=== PATIENT | female | born 1940 | race Caucasian/White ===

== ENCOUNTER 2022-10-03 18:04 | Inpatient (IN) | payer MEDICARE, SELFPAY ==
[2022-10-03] VITALS (25 sets, daily range): BP systolic 125–148; BP diastolic 74–90; PULSE 66–92; RESP 9–21; O2SAT 97–100
--- NOTE | ~2022-10-03 | CT_ITS ---
EXAMINATION: CT brain wo con INDICATION: Weakness, headache COMPARISON: 07/05/2015 TECHNIQUE: Standard unenhanced head CT. The dose-length product (DLP) was 605.33 mGy-cm. The mA was a djusted according to patient size. Iterative reconstruction technique was employed. FINDINGS: There is no acute intraparenchymal hemorrhage. No evidence of mass lesion. No evidence of a cute infarction. There is moderate periventricular and subcortical hypodensity probably related to sm all vessel ischemic disease. There is mild prominence of the sulci and ventricles related to cerebral atrophy. Intracranial calcified cerebral atherosclerosis is noted. There are no extra-axial collecti ons. There is no mass effect or midline shift. Changes in the globes are likely from ocular lens surg silvia. The visualized sinuses and mastoid air cells are well aerated. IMPRESSION: 1. No acute intracranial abnormality. 2. Age related findings. Reviewed, dictated and finalized at location F. R FOAM RUBBER
--- NOTE | ~2022-10-03 | XR_ITS ---
EXAMINATION: XR chest 1V portable INDICATION: Weakness TECHNIQUE: Portable AP chest at 2158 hours COMPARISON: 12/14/2018 FINDINGS: The lungs are free of acute opacities. No pleural effusion or pneumothorax. Cardiomegaly is noted. There are surgical clips in the left neck. IMPRESSION: 1. Cardiomegaly. Reviewed, dictated and finalized at location F. T MILL SUPERVISOR IMPRESSION: 1. Cardiomegaly.
--- NOTE | 2022-10-03 18:16 | ECG_ITS ---
Measurements Intervals [place] Rate: 68 P: 38 W[place]: 215 QRS: -44 QRSD: 139 T: 98 QT: 471 QTc: 503 Interpretive Statements SINUS RHYTHM WITH FIRST DEGREE AV BLOCK ATRIAL PREMATURE COMPLEX LEFT AXIS DEVIATION LEFT BUNDLE BRANCH BLOCK BASELINE ARTIFACT- II, III ABNORMAL ECG COMPARED TO ECG 12/14/2018 17:23:34 NO SIGNIFICANT CHANGES Electronically Signed On 10-03-2022 19:20:38 [employer]ING HOUSE SUPERVISOR by Bernard Casanova D.O.
[2022-10-03 18:34] LABS: Basophils Percent Auto 0.6 % (0.2-1.2); Hematocrit 36.3 % (37.0-47.0); Immature Granulocyte Absolute 0.03 K/mm3 (0.00-0.031); Immature Granulocyte Percent A 0.4 % (0-0.5); Lymphocytes Absolute Auto 0.66 K/mm3 (0.9-3.2); Lymphocytes Percent Auto 9.1 % (18.3-44.2); Mean Corpuscular HGB Conc 33.1 g/dl (32-36); Mean Corpuscular Hemoglobin 31.5 pg (26-34); Mean Corpuscular Volume 95.3 fl (80-100); Monocytes Absolute Auto 0.7 K/mm3 (0.1-0.6); Monocytes Percent Auto 9.5 % (2.6-8.5); Neutrophils Absolute Auto 5.8 K/mm3 (1.3-6.7); Neutrophils Percent Auto 80.4 % (45.5-73.1); Platelet Count Result 181 k/mm3 (150-375); Red Blood Count 3.81 M/mm3 (4.2-5.4); Red Cell Distribution Width 12.7 % (11.5-14.5); White Blood Count 7.3 K/mm3 (4.5-10.0)
[2022-10-03 18:44] LABS: Alanine Aminotransferase 15 U/L (6-35); Alkaline Phosphatase 87 U/L (38-126); Anion Gap 4 mmol/L (8-16); Aspartate Amino Transferase 28 U/L (14-36); Bilirubin,Total 1.2 mg/dL (0.2-1.3); Blood Urea Nitrogen 18 mg/dL (7-17); Calcium 8.6 mg/dL (8.4-10.2); Carbon Dioxide 31 mmol/L (22-30); Chloride 97 mmol/L (98-107); Estimated CRCL calculation 76 ml/min; Estimated Glomerular Filt Rate > 60; Glucose 105 mg/dL (65-110); Potassium 3.5 mmol/L (3.4-5.0); Sodium 132 mmol/L (137-145)
[2022-10-03 20:15] LABS: Appearance Urine Clear (Clear); Bacteria Urine None Seen /hpf; Bilirubin Urine Negative (Negative); Color Urine Yellow (Yellow); Glucose Urine UA Negative (Negative); Ketones Urine Negative (Negative); Leukocyte Esterase Ur Negative LEU/UL (Negative); Need Manual Microscopic Reviewed; Nitrate Urine Negative (Negative); Non Pathogenic Casts 0-2; Protein Urine Trace mg/dL (Negative); Specific Grav Ur 1.012 (1.001-1.035); Squamous Epithelial Cell Urine None seen /hpf (Few); WBC Urine 0-5 /hpf; pH Urine 7.5 (5.0-9.0)
[2022-10-03 20:17] LABS: Add Urine Microscopic? YES
[2022-10-03 21:52] LABS: Lactic Acid Reflex 0.9 mmol/L (0.7-2.0)
[2022-10-03 21:54] LABS: Ethanol < 10 mg/dL (<10)
[2022-10-03 21:59] LABS: Magnesium 1.8 mg/dL (1.6-2.3)
[2022-10-03 22:04] LABS: Amphetamine Screen Urine Negative (Negative); Barbiturate Screen Urine Negative (Negative); Benzodiazepines Screen Urine Negative (Negative); Cannabinoid Screen Urine Negative (Negative); Cocaine Screen Urine Negative (Negative); Methadone Screen Urine Negative (Negative); Opiate Screen Urine Negative (Negative); Phencyclidine Screen Urine Negative (Negative)
[2022-10-03 22:12] LABS: Troponin I < 0.012 ng/mL (0.000-0.034)
[2022-10-03 22:16] LABS: Procalcitonin 0.1 ng/mL
[2022-10-03 22:25] LABS: Influenza A QL RT-PCR Negative (Negative); Influenza B QL RT-PCR Negative (Negative); SARS-CoV-2 RNA PCR Negative
--- NOTE | 2022-10-04 00:03 | ED.GENADULT ---
HPI - General Adult General Chief complaint: Weakness Stated complaint: Weakness Time Seen by Provider: 10/03/22 21:08 History of Present Illness HPI narrative: Patient 82-year-old female who presents emerged department with chief complaint of generalized weakness. Patient lives at home with her [id number] mother patient has history of Parkinson's and is normally on medications for Parkinson's but apparently has not been taking it for the last several weeks due to it making her feel weaker than normal. Patient reports that she is unsteady whenever she walks and the family is concerned as she has not been her normal self lately. Related Data Allergies Allergy/AdvReac Type Severity Reaction Status Date / Time mesalamine Allergy Mild Verified 12/14/18 15:53 sulfasalazine Allergy Mild Verified 12/14/18 15:53 codeine Allergy Unknown Verified 12/14/18 15:53 Review of Systems Review of Systems: A 10 system review of systems was completed on the patient and is negative except for what is stated in the HPI. Nursing and ancillary documentation was reviewed. Exam Narrative: GENERAL: Well-appearing, well-nourished, and in no acute distress. HEAD: Normocephalic, atraumatic. EYES: PERRLA and EOMI. ENT: Nares clear, no rhinorrhea or epistaxis. Mucous membranes moist. NECK: Supple. CHEST: Clear to auscultation. No respiratory distress. HEART: Regular rate and rhythm. No murmur heard. Normal peripheral pulses. ABDOMEN: Soft, nontender, nondistended, normal active bowel sounds. EXTREMITIES: Normal range of motion. No edema. SKIN: Warm, dry, no rash. NEURO: No focal deficits. Alert and oriented x3. Patient is unable to ambulate using a walker at this time due to her Parkinson tremor PSYCH: Normal mood and affect. Course Course Emergency Course: Differential diagnosis includes infection UTI, pneumonia, COVID electrolyte abnormality [facility] CT head shows no acute abnormality, chest x-ray shows no focal infiltrate Laboratory studies were obtained which showed negative flu negative for COVID electrolytes were within normal limits urinalysis showed no evidence of UTI [place] is negative troponin is negative Patient was ambulated in the emergency department the patient was unable to ambulate even using a walker due to being unsteady. At this time is felt the safest option is to admit the patient for observation the case was discussed with the hospitalist and the patient will be admitted to the hospitalist service. Vital Signs Vital signs: Vital Signs Pulse Rate 69 10/03/22 18:06 Respiratory Rate 16 10/03/22 18:06 Blood Pressure 133/83 10/03/22 18:06 Pulse Oximetry 98 10/03/22 18:06 Oxygen Delivery Room Air 10/03/22 18:06 Pulse Rate 72 10/03/22 22:30 Respiratory Rate 15 10/03/22 22:30 Blood Pressure 126/90 10/03/22 22:30 Pulse Oximetry 97 10/03/22 22:30 Oxygen Delivery Room Air 10/03/22 18:06 Medical Decision Making Vital Signs Vital Signs: Vital Signs Pulse Rate 69 10/03/22 18:06 Respiratory Rate 16 10/03/22 18:06 Blood Pressure 133/83 10/03/22 18:06 Pulse Oximetry 98 10/03/22 18:06 Oxygen Delivery Room Air 10/03/22 18:06 Pulse Rate 72 10/03/22 22:30 Respiratory Rate 15 10/03/22 22:30 Blood Pressure 126/90 10/03/22 22:30 Pulse Oximetry 97 10/03/22 22:30 Oxygen Delivery Room Air 10/03/22 18:06 Lab Data 10/03/22 18:28 10/03/22 18:28 Labs: Lab Results 10/03/22 10/03/22 10/03/22 Range/Units 18:27 18:28 18:28 WBC 7.3 (4.5-10.0) K/mm3 RBC 3.81 L (4.2-5.4) M/mm3 Hgb 12.0 (12.0-15.0) g/dL Hct 36.3 L (37.0-47.0) % MCV 95.3 (80-100) fl MCH 31.5 (26-34) pg MCHC 33.1 (32-36) g/dl RDW 12.7 (11.5-14.5) % Plt Count 181 (150-375) k/mm3 MPV 10.0 (7.4-10.4) fl Immature Gran % (Auto) 0.4 (0-0.5) % Neut % (Auto) 80.4 H (45.5-73.1) % Lymph % (Auto) 9.1 L (18.3
--- NOTE | 2022-10-04 01:24 | PM.IMHP ---
H&P: HPI History of Present Illness Date/Time: 10/04/22 01:24 Chief Complaint: 82 years old female with past medical history of parkinsonism presented to the ER with worsening weakness patient was not taking her medication at home patient unable to use a walker patient unable to care for herself patient most likely will need placement workup at the ER include CBC CMP UA was negative for acute finding probably patient has decreased oral intake and dehydration complicated by not taking antiparkinson medication patient will be admitted to the hospital for placement Review of Systems Review of Systems: Twelve system review was done negative except above Meds Home Medications and Allergies Allergies Allergy/AdvReac Type Severity Reaction Status Date / Time mesalamine Allergy Mild Verified 12/14/18 15:53 sulfasalazine Allergy Mild Verified 12/14/18 15:53 codeine Allergy Unknown Verified 12/14/18 15:53 Vital Signs Vital Signs - 24 hr 10/03/22 18:06 10/03/22 19:20 10/03/22 18:16 Pulse Rate 69 70 68 Respiratory Rate 16 21 H Blood Pressure 133/83 Pulse Oximetry 98 97 Oxygen Delivery Room Air 10/03/22 18:24 10/03/22 18:30 10/03/22 18:45 Pulse Rate 74 66 66 Respiratory Rate 11 L 10 L 11 L Blood Pressure 131/84 Pulse Oximetry 100 100 99 Oxygen Delivery 10/03/22 19:00 10/03/22 19:01 10/03/22 19:15 Pulse Rate 67 66 69 Respiratory Rate 13 9 L 11 L Blood Pressure 125/74 Pulse Oximetry 98 99 100 Oxygen Delivery 10/03/22 19:31 10/03/22 19:45 10/03/22 20:00 Pulse Rate 68 72 79 Respiratory Rate 11 L 12 11 L Blood Pressure Pulse Oximetry Oxygen Delivery 10/03/22 20:01 10/03/22 20:15 10/03/22 20:30 Pulse Rate 72 70 81 Respiratory Rate 10 L 11 L 14 Blood Pressure 148/77 H Pulse Oximetry Oxygen Delivery 10/03/22 20:45 10/03/22 21:00 10/03/22 21:01 Pulse Rate 72 83 92 Respiratory Rate 16 13 15 Blood Pressure Pulse Oximetry 98 99 Oxygen Delivery 10/03/22 21:15 10/03/22 21:30 10/03/22 21:45 Pulse Rate 74 78 71 Respiratory Rate 14 17 15 Blood Pressure Pulse Oximetry Oxygen Delivery 10/03/22 22:00 10/03/22 22:01 10/03/22 22:15 Pulse Rate 72 74 74 Respiratory Rate 17 16 19 Blood Pressure Pulse Oximetry Oxygen Delivery 10/03/22 22:30 Pulse Rate 72 Respiratory Rate 15 Blood Pressure 126/90 Pulse Oximetry 97 Oxygen Delivery Exam Narrative: GENERAL: Well appearing, well-nourished, non-toxic, in no acute distress. HEAD: Normocephalic, atraumatic. NECK: Supple. No adenopathy, no masses. RESPIRATORY: Airway patent, respirations nonlabored. Clear to auscultation bilaterally, no rales, rhonchi, wheezing. CARDIOVASCULAR: Regular rate and rhythm without murmurs, rubs, or gallops. Peripheral pulses 2+ and equal bilaterally. ABDOMINAL: Soft, nontender, nondistended, no hepatosplenomegaly. Normoactive BS. MUSCULOSKELETAL: Moves all extremities. Strength/ROM intact without gross deformities or TTP. No edema. No calf tenderness. No chest wall tenderness palpation. SKIN: Warm, dry, normal color. No rashes. NEURO: A&O X3. Speech clear. Cranial nerves II-XII grossly intact. Steady gait. No ataxic movements. PSYCHIATRIC: Appropriate mood and affect. Normal interaction. H&P: Results Labs Labs: Short CBC 10/03/22 Range/Units 18:28 WBC 7.3 (4.5-10.0) K/mm3 Hgb 12.0 (12.0-15.0) g/dL Hct 36.3 L (37.0-47.0) % Plt Count 181 (150-375) k/mm3 [facility] 10/03/22 18:28 Sodium 132 L Potassium 3.5 Chloride 97 L Carbon Dioxide 31 H BUN 18 H Creatinine 0.80 Glucose 105 Calcium 8.6 Cardiac Enzymes 10/03/22 Range/Units 21:37 Troponin I < 0.012 (0.000-0.034) ng/mL Liver Function 10/03/22 Range/Units 18:28 Total Bilirubin 1.2 (0.2-1.3) mg/dL AST 28 (14-36) U/L ALT 15 (6-35) U/L Alkaline Phosphatase 87 (38-126) U/L Albumin 4.0 (3.5-5.1) g/dL Urine 10/03/22 Range/Units
--- NOTE | 2022-10-04 03:10 | ADMGEN ---
This patient, Faiza Pizarro, was admitted to Medical Room 344-01. Patient/family oriented to hospital policies and general routines including ID bracelet, bed and alarms, visiting hours, pain management, procedures, bathroom and other care routines, personal items, smoking policy, room service/diet, and visiting hours. Information on how to activate the Rapid Response Team has been discussed. Patient/Family are encouraged to report perceived risks to care and to ask questions if they do not understand what they are told or what they should do.
[2022-10-04] MEDS: ACETAMINOPHEN 325 MG TABLET 650 MG PO (03:26)
[2022-10-04] MEDS: SODIUM CHLORIDE 0.9% IV 1,000 ML 100 ML IV CONT ×2 (03:36→16:52)
[2022-10-04 03:39] VITALS: BMI 26.6
[2022-10-04 04:00] VITALS: BP 154/76; PULSE 64; RESP 20; TEMP 36.6; O2SAT 100
[2022-10-04 04:16] LABS: Creatinine Urine 74.6 mg/dL
[2022-10-04 05:26] LABS: Basophils Percent Auto 0.8 % (0.2-1.2); Eosinophils Percent Auto 0.2 % (0-4.4); Hematocrit 33.5 % (37.0-47.0); Immature Granulocyte Absolute 0.02 K/mm3 (0.00-0.031); Immature Granulocyte Percent A 0.4 % (0-0.5); Lymphocytes Absolute Auto 0.87 K/mm3 (0.9-3.2); Lymphocytes Percent Auto 16.6 % (18.3-44.2); Mean Corpuscular HGB Conc 32.8 g/dl (32-36); Mean Corpuscular Hemoglobin 31.4 pg (26-34); Mean Corpuscular Volume 95.7 fl (80-100); Mean Platelet Volume 9.8 fl (7.4-10.4); Monocytes Absolute Auto 0.6 K/mm3 (0.1-0.6); Monocytes Percent Auto 12.2 % (2.6-8.5); Neutrophils Absolute Auto 3.7 K/mm3 (1.3-6.7); Neutrophils Percent Auto 69.8 % (45.5-73.1); Platelet Count Result 170 k/mm3 (150-375); Red Cell Distribution Width 12.7 % (11.5-14.5); White Blood Count 5.2 K/mm3 (4.5-10.0)
[2022-10-04 05:41] LABS: Alanine Aminotransferase 15 U/L (6-35); Albumin Level 3.5 g/dL (3.5-5.1); Alkaline Phosphatase 70 U/L (38-126); Anion Gap 3 mmol/L (8-16); Aspartate Amino Transferase 35 U/L (14-36); Bilirubin,Total 1.2 mg/dL (0.2-1.3); Blood Urea Nitrogen 15 mg/dL (7-17); Calcium 8.3 mg/dL (8.4-10.2); Carbon Dioxide 28 mmol/L (22-30); Chloride 100 mmol/L (98-107); Estimated CRCL calculation 49 ml/min; Estimated Glomerular Filt Rate > 60; Glucose 100 mg/dL (65-110); Potassium 3.2 mmol/L (3.4-5.0); Sodium 131 mmol/L (137-145)
--- NOTE | 2022-10-04 08:26 | PM.IMPN ---
Progress Note: A&P Assessment and Plan (1) Episode of generalized weakness: Code(s): R53.1 - Weakness Status: Acute Assessment and Plan: PT OT evaluation Most likely multifactorial secondary to decreased oral intake and dehydration Encourage oral hydration Give IV fluid May need placement (2) Dehydration: Code(s): E86.0 - Dehydration Status: Acute Assessment and Plan: IV fluid (3) Parkinson disease: Code(s): G20 - Parkinson's disease Status: Acute Assessment and Plan: Resume home medication (4) Acute hyponatremia: Code(s): E87.1 - Hypo-osmolality and hyponatremia Status: Acute Assessment and Plan: Most likely related to dehydration give IV fluid Subjective Date/time seen: 10/04/22 08:26 Exam Narrative: GENERAL: Well appearing, well-nourished, non-toxic, in no acute distress. HEAD: Normocephalic, atraumatic. NECK: Supple. No adenopathy, no masses. RESPIRATORY: Airway patent, respirations nonlabored. Clear to auscultation bilaterally, no rales, rhonchi, wheezing. CARDIOVASCULAR: Regular rate and rhythm without murmurs, rubs, or gallops. Peripheral pulses 2+ and equal bilaterally. ABDOMINAL: Soft, nontender, nondistended, no hepatosplenomegaly. Normoactive BS. MUSCULOSKELETAL: Moves all extremities. Strength/ROM intact without gross deformities or TTP. No edema. No calf tenderness. No chest wall tenderness palpation. SKIN: Warm, dry, normal color. No rashes. NEURO: A&O X3. Speech clear. Cranial nerves II-XII grossly intact. Steady gait. No ataxic movements. PSYCHIATRIC: Appropriate mood and affect. Normal interaction. Objective Data Vital Signs Vital Signs: Vital Signs - 24 hr 10/03/22 18:06 10/03/22 19:20 10/03/22 18:16 Temperature Pulse Rate 69 70 68 Respiratory Rate 16 21 H Blood Pressure 133/83 Pulse Oximetry 98 97 Oxygen Delivery Room Air 10/03/22 18:24 10/03/22 18:30 10/03/22 18:45 Temperature Pulse Rate 74 66 66 Respiratory Rate 11 L 10 L 11 L Blood Pressure 131/84 Pulse Oximetry 100 100 99 Oxygen Delivery 10/03/22 19:00 10/03/22 19:01 10/03/22 19:15 Temperature Pulse Rate 67 66 69 Respiratory Rate 13 9 L 11 L Blood Pressure 125/74 Pulse Oximetry 98 99 100 Oxygen Delivery 10/03/22 19:31 10/03/22 19:45 10/03/22 20:00 Temperature Pulse Rate 68 72 79 Respiratory Rate 11 L 12 11 L Blood Pressure Pulse Oximetry Oxygen Delivery 10/03/22 20:01 10/03/22 20:15 10/03/22 20:30 Temperature Pulse Rate 72 70 81 Respiratory Rate 10 L 11 L 14 Blood Pressure 148/77 H Pulse Oximetry Oxygen Delivery 10/03/22 20:45 10/03/22 21:00 10/03/22 21:01 Temperature Pulse Rate 72 83 92 Respiratory Rate 16 13 15 Blood Pressure Pulse Oximetry 98 99 Oxygen Delivery 10/03/22 21:15 10/03/22 21:30 10/03/22 21:45 Temperature Pulse Rate 74 78 71 Respiratory Rate 14 17 15 Blood Pressure Pulse Oximetry Oxygen Delivery 10/03/22 22:00 10/03/22 22:01 10/03/22 22:15 Temperature Pulse Rate 72 74 74 Respiratory Rate 17 16 19 Blood Pressure Pulse Oximetry Oxygen Delivery 10/03/22 22:30 10/04/22 04:00 Temperature 98 F Pulse Rate 72 64 Respiratory Rate 15 20 Blood Pressure 126/90 154/76 H Pulse Oximetry 97 100 Oxygen Delivery Intake/Output Intake/Output: Intake & Output 10/01/22 10/02/22 10/03/22 10/04/22 23:59 23:59 23:59 23:59 Output Total 300 Balance -300 Meds/Results Medications: Active Medications Generic Name Dose Route Start Last Admin Trade Name Robq PRN Reason Stop Dose Admin Acetaminophen 650 mg 10/04/22 01:22 10/04/22 03:26 Acetaminophen 325 Mg Tablet PO 650 mg Q6H PRN Administration Mild Pain (1-3) Enoxaparin Sodium 40 mg 10/04/22 09:00 Enoxaparin 40 Mg/0.4 Ml Syringe SUB-Q DAILY NOHEMY Famotidine 20 mg 10/04/22 09:00 Famotidine 20 Mg Tablet PO
[2022-10-04] MEDS: FAMOTIDINE 20 MG TABLET PO ×2 (08:46→21:41)
[2022-10-04] MEDS: ENOXAPARIN 40 MG/0.4 ML SYRINGE SUB-Q (08:46)
--- NOTE | 2022-10-04 09:11 | WPDNEURCNPN ---
Assessment and Plan Assessment and plan (1) Parkinson disease: Code(s): G20 - Parkinson's disease Status: Acute (2) Episode of generalized weakness: Code(s): R53.1 - Weakness Status: Acute Plan Faiza Pizarro is a 82 year old female with a history of Parkinson's disease who presented to the emergency room due to concerns for generalized weakness. She has not been compliant with her due to concerns for excessive drowsiness and fatigue. Patient is on SSRI, so would not add MAO-B inhibitor such as rasagiline. Given her age, I would also avoid dopamine agonists as well. She does have a prominent kinetic tremor without any significant bradykinesia or rigidity so I am also considering essential tremor component. I discussed the option of restarting Sinemet at a lower dose with slower titration and seeing how she tolerates as it would be the best medication to start with especially with her age. I also discussed the option of trying Primidone for possible essential tremor component. Patient did not seem to be interested in either option at the time of our discussion. She is concerned about the sedating effects of the medications. It is unknown how much Sinemet she was actually taking and whether there were any other confounding factors. We discussed that she can think about it and let us know if she is willing to start a medication. - If patient is agreeable, we can start Sinemet 25-100mg week 1: take 1/2 tablet at bedtime week 2: take 1/2 tablet mid-day and 1/2 tablet at bedtime week 3: take 1/2 tablet in the morning, 1/2 tablet mid-day, and 1/2 tablet at bedtime week 4: take 1/2 tablet in the morning, 1/2 tablet mid-day, and 1 tablet at bedtime week 5: take 1/2 tablet in the morning, 1 tablet mid-day, and 1 tablet at bedtime week 6: take 1 tablet in the morning, 1 tablet mid-day, and 1 tablet at bedtime Take each dose on an empty stomach with 2 crackers or 30 minutes before a meal Consult date: 10/04/22 Reason for consult: Parkinson's Disease HPI: Faiza Pizarro is a 82 year old female with a history of Parkinson's disease who presented to the emergency room due to concerns for generalized weakness. Patient lives with her elderly mother. She recently stopped taking her Parkinson's medication due to it making her tired. Family feels that she has not been acting like herself. In the ED, her labs were unrevealing - UA negative. CT head showed no evidence of acute process. Blood pressure has been stable as well. No PD medications have been ordered during this admission. She does take Citalopram 40mg daily. Patient was previously taking Sinemet but does not remember how much she was taking. She stopped taking it a few years ago. She reports she did not see a Neurologist and that her primary doctor had prescribed it to her. She has tremor and balance issues but does walk independently. She does not remember when she was diagnosed with Parkinson's but says it has been years. Review of Systems Constitutional: Constitutional: Reports weakness Eyes: Eyes: Reports no additional eye complaints ENT: Reports system reviewed and no additional complaints, except as documented Cardiovascular: Cardiovascular: Reports no additional cardiovascular complaints Respiratory: Respiratory: Reports no additional respiratory complaints Gastrointestinal: Gastrointestinal: Reports no additional gastrointestinal complaints Genitourinary: Genitourinary: Reports no additional female genitourinary complaints Musculoskeletal: Musculoskeletal: Reports no additional musculoskeletal complaints Integumentary/Breasts: Skin/Breast: Reports system reviewed and no additional complaints, except as docu Neurologic: Reports as per [facility] Social History Social History Smoking status: Never smoker Alcohol intake: never Substance use: never Lack of Transportation: YES Lack of Food: Never True Cu
--- NOTE | 2022-10-04 09:22 | PM.IMPN ---
Progress Note: A&P Assessment and Plan (1) Episode of generalized weakness: Code(s): R53.1 - Weakness Status: Acute Assessment and Plan: PT OT evaluation Most likely multifactorial secondary to decreased oral intake and dehydration Encourage oral hydration Give IV fluid May need placement (2) Dehydration: Code(s): E86.0 - Dehydration Status: Acute Assessment and Plan: (3) Parkinson disease: Code(s): G20 - Parkinson's disease Status: Acute Assessment and Plan: uncontrolled Parkinson disease, rest tremor, patient has been off medication for long time, unable to tolerate medication Resume home medication, consult neurologist for evaluation and treatment (4) Acute hyponatremia: Code(s): E87.1 - Hypo-osmolality and hyponatremia Status: Acute Assessment and Plan: Most likely related to dehydration give IV fluid (5) Hyponatremia: Code(s): E87.1 - Hypo-osmolality and hyponatremia Status: Acute Assessment and Plan: continue normal saline 100 mL/hour (6) Hypokalemia: Code(s): E87.6 - Hypokalemia Status: Acute Assessment and Plan: start potassium chloride 20 mEq. b.i.d. P.o. Subjective Date/time seen: 10/04/22 09:22 saw examined patient. Patient is awake, not oriented x3, has uncontrolled tremors, patient is of Parkinson disease medication for long time Exam Narrative: GENERAL: Well appearing, well-nourished, non-toxic, in no acute distress. HEAD: Normocephalic, atraumatic. dry mucous members NECK: Supple. No adenopathy, no masses. RESPIRATORY: Airway patent, respirations nonlabored. Clear to auscultation bilaterally, no rales, rhonchi, wheezing. CARDIOVASCULAR: Regular rate and rhythm without murmurs, rubs, or gallops. Peripheral pulses 2+ and equal bilaterally. ABDOMINAL: Soft, nontender, nondistended, no hepatosplenomegaly. Normoactive BS. MUSCULOSKELETAL: Moves all extremities. general weakness,/ROM intact without gross deformities or TTP. No edema. No calf tenderness. No chest wall tenderness palpation. SKIN: Warm, dry, normal color. No rashes. NEURO: alert, not oriented x3. Speech clear. Cranial nerves II-XII grossly intact. uncontrolled tremor due to Parkinson disease PSYCHIATRIC: Appropriate mood and affect. Normal interaction. Objective Data Vital Signs Vital Signs: Vital Signs - 24 hr 10/03/22 18:06 10/03/22 19:20 10/03/22 18:16 Temperature Pulse Rate 69 70 68 Respiratory Rate 16 21 H Blood Pressure 133/83 Pulse Oximetry 98 97 Oxygen Delivery Room Air 10/03/22 18:24 10/03/22 18:30 10/03/22 18:45 Temperature Pulse Rate 74 66 66 Respiratory Rate 11 L 10 L 11 L Blood Pressure 131/84 Pulse Oximetry 100 100 99 Oxygen Delivery 10/03/22 19:00 10/03/22 19:01 10/03/22 19:15 Temperature Pulse Rate 67 66 69 Respiratory Rate 13 9 L 11 L Blood Pressure 125/74 Pulse Oximetry 98 99 100 Oxygen Delivery 10/03/22 19:31 10/03/22 19:45 10/03/22 20:00 Temperature Pulse Rate 68 72 79 Respiratory Rate 11 L 12 11 L Blood Pressure Pulse Oximetry Oxygen Delivery 10/03/22 20:01 10/03/22 20:15 10/03/22 20:30 Temperature Pulse Rate 72 70 81 Respiratory Rate 10 L 11 L 14 Blood Pressure 148/77 H Pulse Oximetry Oxygen Delivery 10/03/22 20:45 10/03/22 21:00 10/03/22 21:01 Temperature Pulse Rate 72 83 92 Respiratory Rate 16 13 15 Blood Pressure Pulse Oximetry 98 99 Oxygen Delivery 10/03/22 21:15 10/03/22 21:30 10/03/22 21:45 Temperature Pulse Rate 74 78 71 Respiratory Rate 14 17 15 Blood Pressure Pulse Oximetry Oxygen Delivery 10/03/22 22:00 10/03/22 22:01 10/03/22 22:15 Temperature Pulse Rate 72 74 74 Respiratory Rate 17 16 19 Blood Pressure Pulse Oximetry Oxygen Delivery 10/03/22 22:30 10/04/22 04:00 Temperature 98 F Pulse Rate 72 64 Respiratory Rate 15 20 Bl
[2022-10-04 14:00] VITALS: BP 140/58; PULSE 64; RESP 20; TEMP 36.3; O2SAT 100
[2022-10-04] MEDS: POTASSIUM CHLORIDE 20 MEQ PACKET (FOR LIQUID) PO ×2 (16:53)
[2022-10-04 20:00] VITALS: PULSE 77; RESP 16; O2SAT 99
[2022-10-04 21:23] VITALS: BP 156/88; PULSE 77; RESP 16; TEMP 36.6; O2SAT 99
[2022-10-05 05:19] VITALS: BP 144/75; PULSE 77; RESP 18; TEMP 36.8; O2SAT 100
[2022-10-05 05:53] LABS: Basophils Absolute Auto 0.1 K/mm3 (0.0-0.1); Basophils Percent Auto 0.7 % (0.2-1.2); Eosinophils Absolute Auto 0.1 K/mm3 (0-0.3); Hematocrit 39.4 % (37.0-47.0); Hemoglobin 12.7 g/dL (12.0-15.0); Immature Granulocyte Absolute 0.03 K/mm3 (0.00-0.031); Immature Granulocyte Percent A 0.4 % (0-0.5); Lymphocytes Absolute Auto 0.99 K/mm3 (0.9-3.2); Lymphocytes Percent Auto 14.4 % (18.3-44.2); Mean Corpuscular HGB Conc 32.2 g/dl (32-36); Mean Corpuscular Hemoglobin 30.8 pg (26-34); Mean Corpuscular Volume 95.4 fl (80-100); Mean Platelet Volume 10.2 fl (7.4-10.4); Monocytes Absolute Auto 0.9 K/mm3 (0.1-0.6); Monocytes Percent Auto 12.8 % (2.6-8.5); Neutrophils Absolute Auto 4.9 K/mm3 (1.3-6.7); Neutrophils Percent Auto 70.7 % (45.5-73.1); Platelet Count Result 185 k/mm3 (150-375); Red Blood Count 4.13 M/mm3 (4.2-5.4); Red Cell Distribution Width 12.7 % (11.5-14.5); White Blood Count 6.9 K/mm3 (4.5-10.0)
[2022-10-05 06:08] LABS: Alanine Aminotransferase 17 U/L (6-35); Albumin Level 3.8 g/dL (3.5-5.1); Alkaline Phosphatase 85 U/L (38-126); Anion Gap 4 mmol/L (8-16); Aspartate Amino Transferase 42 U/L (14-36); Bilirubin,Total 1.2 mg/dL (0.2-1.3); Blood Urea Nitrogen 12 mg/dL (7-17); Calcium 8.3 mg/dL (8.4-10.2); Carbon Dioxide 27 mmol/L (22-30); Chloride 100 mmol/L (98-107); Estimated CRCL calculation 49 ml/min; Estimated Glomerular Filt Rate > 60; Glucose 85 mg/dL (65-110); Potassium 3.8 mmol/L (3.4-5.0); Sodium 131 mmol/L (137-145)
--- NOTE | 2022-10-05 09:21 | PM.IMPN ---
Progress Note: A&P Assessment and Plan (1) Episode of generalized weakness: Code(s): R53.1 - Weakness Status: Acute (2) Dehydration: Code(s): E86.0 - Dehydration Status: Acute (3) Parkinson disease: Code(s): G20 - Parkinson's disease Status: Acute (4) Acute hyponatremia: Code(s): E87.1 - Hypo-osmolality and hyponatremia Status: Acute (5) Hyponatremia: Code(s): E87.1 - Hypo-osmolality and hyponatremia Status: Acute (6) Hypokalemia: Code(s): E87.6 - Hypokalemia Status: Acute Plan (1) Episode of generalized weakness: ?Code(s): R53.1 - Weakness ?Status:?Acute ?Assessment and Plan: PT OT evaluation Most likely multifactorial secondary to decreased oral intake and dehydration Encourage oral hydration Give IV fluid May need placement (2) Dehydration: ?Code(s): E86.0 - Dehydration ?Status:?Acute ?Assessment and Plan: (3) Parkinson disease: ?Code(s): G20 - Parkinson's disease ?Status:?Acute ?Assessment and Plan: ?uncontrolled Parkinson disease, rest tremor, ?patient has been off medication for long time, unable to tolerate medication consult neurologist for evaluation and treatment appreciate neurology's consultation, recommends low-dose sentiment (4) Acute hyponatremia: ?Code(s): E87.1 - Hypo-osmolality and hyponatremia ?Status:?Acute ?Assessment and Plan: Most likely related to dehydration give IV fluid (5) Hyponatremia: ?Code(s): E87.1 - Hypo-osmolality and hyponatremia ?Status:?Acute ?Assessment and Plan: ?continue normal saline? 100 mL/hour add sodium chloride tablet 1 g t.i.d. p.o. (6) Hypokalemia: ?Code(s): E87.6 - Hypokalemia ?Status:?Acute ?Assessment and Plan: ?start potassium chloride 20 mEq. b.i.d.? P.o. corrected consult PT OT social worker delinquency prevention lead case manager for evaluation And insisting placement. Subjective Date/time seen: 10/05/22 09:21 Objective Data Vital Signs Vital Signs: Vital Signs - 24 hr 10/04/22 14:00 10/04/22 21:23 10/04/22 20:00 Temperature 97.3 F L 98 F Pulse Rate 64 77 77 Respiratory Rate 20 16 16 Blood Pressure 140/58 L 156/88 H Pulse Oximetry 100 99 99 Oxygen Delivery Room Air 10/05/22 05:19 10/05/22 07:26 Temperature 98.3 F Pulse Rate 77 Respiratory Rate 18 Blood Pressure 144/75 H Pulse Oximetry 100 Oxygen Delivery Room Air Intake/Output Intake/Output: Intake & Output 10/02/22 10/03/22 10/04/22 10/05/22 23:59 23:59 23:59 23:59 Intake Total 1480 150 Output Total 1450 250 Balance 30 -100 Meds/Results Medications: Active Medications Generic Name Dose Route Start Last Admin Trade Name Freq PRN Reason Stop Dose Admin Acetaminophen 650 mg 10/04/22 01:22 10/04/22 03:26 Acetaminophen 325 Mg Tablet PO 650 mg Q6H PRN Administration Mild Pain (1-3) Enoxaparin Sodium 40 mg 10/04/22 09:00 10/04/22 08:46 Enoxaparin 40 Mg/0.4 Ml Syringe SUB-Q 40 mg DAILY NOHEMY Administration Famotidine 20 mg 10/04/22 09:00 10/04/22 21:41 Famotidine 20 Mg Tablet PO 20 mg Q12HR NOHEMY Administration Sodium Chloride 1,000 mls @ 100 mls/hr 10/04/22 01:25 10/04/22 16:52 Normal Saline Iv IV CONT 100 mls/hr .Q10H NOHEMY Administration Ondansetron HCl 4 mg 10/04/22 01:22 Ondansetron Inj 4 Mg/2 Ml Vial IV PUSH Q6H PRN Nausea And Vomiting Potassium Chloride 20 meq 10/04/22 09:30 10/04/22 16:53 Potassium Chloride 20 Meq Packet (For Liquid) PO 20 meq BID NOHEMY Administration Radiology Results: ITS Impressions Chest X-Ray 10/03/22 22:05 IMPRESSION: 1. Cardiomegaly. Head CT 10/03/22 22:56 IMPRESSION: 1. No acute intracranial abnormality. 2. Age related findings. Labs Labs: Laboratory Results - last 24 hr 10/05/22 10/05/22 05:35 05:35 WBC 6.9 RBC 4.13 L Hgb 12.7
--- NOTE | 2022-10-05 10:14 | PM.IMPN ---
Progress Note: A&P Assessment and Plan (1) Episode of generalized weakness: Code(s): R53.1 - Weakness Status: Acute (2) Dehydration: Code(s): E86.0 - Dehydration Status: Acute (3) Parkinson disease: Code(s): G20 - Parkinson's disease Status: Acute (4) Acute hyponatremia: Code(s): E87.1 - Hypo-osmolality and hyponatremia Status: Acute (5) Hyponatremia: Code(s): E87.1 - Hypo-osmolality and hyponatremia Status: Acute (6) Hypokalemia: Code(s): E87.6 - Hypokalemia Status: Acute Plan Assessment and Plan (1) Episode of generalized weakness: ?Code(s): R53.1 - Weakness ?Status:?Acute ?Assessment and Plan: PT OT evaluation Most likely multifactorial secondary to decreased oral intake and dehydration Encourage oral hydration Give IV fluid May need placement (2) Dehydration: ?Code(s): E86.0 - Dehydration ?Status:?Acute ?Assessment and Plan: (3) Parkinson disease: ?Code(s): G20 - Parkinson's disease ?Status:?Acute ?Assessment and Plan: ?uncontrolled Parkinson disease, rest tremor, ?patient has been off medication for long time, unable to tolerate medication ? consult neurologist for evaluation and treatment, consider essential tremor and uncontrolled Parkinson disease. patient agrees to take low-dose of Sinemet 25-100mg for Parkinson disease (4) Acute hyponatremia: ?Code(s): E87.1 - Hypo-osmolality and hyponatremia ?Status:?Acute ?Assessment and Plan: Most likely related to dehydration give IV fluid (5) Hyponatremia: ?Code(s): E87.1 - Hypo-osmolality and hyponatremia ?Status:?Acute ?Assessment and Plan: ?continue normal saline? 100 mL/hour add sodium chloride tablet p.o. (6) Hypokalemia: ?Code(s): E87.6 - Hypokalemia ?Status:?Acute ?Assessment and Plan: ?start potassium chloride 20 mEq. b.i.d.? P.o. corrected Subjective Date/time seen: 10/05/22 10:14 I saw examined patient today. Patient mental status is improving, ate breakfast, patient has uncontrolled tremors. No new issue urine overnight Exam Narrative: GENERAL: Well appearing, well-nourished, non-toxic, in no acute distress. HEAD: Normocephalic, atraumatic.? dry mucous members NECK: Supple. No adenopathy, no masses. RESPIRATORY: Airway patent, respirations nonlabored. Clear to auscultation bilaterally, no rales, rhonchi, wheezing. CARDIOVASCULAR: Regular rate and rhythm without murmurs, rubs, or gallops. Peripheral pulses 2+ and equal bilaterally. ABDOMINAL: Soft, nontender, nondistended, no hepatosplenomegaly. Normoactive BS. MUSCULOSKELETAL: Moves all extremities.? general weakness,/ROM intact without gross deformities or TTP. No edema. No calf tenderness.? No chest wall tenderness palpation. SKIN: Warm, dry, normal color. No rashes. NEURO:? alert, oriented x3. Speech clear. Cranial nerves II-XII grossly intact.? uncontrolled tremor due to Parkinson disease PSYCHIATRIC: Appropriate mood and affect. Normal interaction. Objective Data Vital Signs Vital Signs: Vital Signs - 24 hr 10/04/22 14:00 10/04/22 21:23 10/04/22 20:00 Temperature 97.3 F L 98 F Pulse Rate 64 77 77 Respiratory Rate 20 16 16 Blood Pressure 140/58 L 156/88 H Pulse Oximetry 100 99 99 Oxygen Delivery Room Air 10/05/22 05:19 10/05/22 07:26 Temperature 98.3 F Pulse Rate 77 Respiratory Rate 18 Blood Pressure 144/75 H Pulse Oximetry 100 Oxygen Delivery Room Air Intake/Output Intake/Output: Intake & Output 10/02/22 10/03/22 10/04/22 10/05/22 23:59 23:59 23:59 23:59 Intake Total 1480 510 Output Total 1450 250 Balance 30 260 Meds/Results Medications: Active Medications Generic Name Dose Route Start Last Admin Trade Name Freq PRN Reason Stop Dose Admin Acetaminophen 650 mg 10/04/22 01:22 10/04/22 03:26 Acetaminophen 325 Mg Tablet PO 650 mg Q6H PRN Administratio
[2022-10-05] MEDS: ENOXAPARIN 40 MG/0.4 ML SYRINGE SUB-Q (10:19)
[2022-10-05] MEDS: POTASSIUM CHLORIDE 20 MEQ PACKET (FOR LIQUID) PO ×2 (10:19→18:23)
[2022-10-05 10:20] VITALS: PULSE 79; RESP 20; O2SAT 98
[2022-10-05] MEDS: FAMOTIDINE 20 MG TABLET PO ×2 (10:20→20:58)
[2022-10-05] MEDS: CARBIDOPA/LEVODOPA 25/100 MG TABLET 1 TABLET PO ×2 (13:35→20:58)
[2022-10-05] MEDS: SODIUM CHLORIDE 1 GM TABLET PO ×2 (13:35→18:23)
[2022-10-05 14:00] VITALS: BP 130/55; PULSE 79; RESP 20; TEMP 36.7; O2SAT 98
[2022-10-05 20:00] VITALS: PULSE 74; RESP 19; O2SAT 98
[2022-10-05] MEDS: SODIUM CHLORIDE 0.9% IV 1,000 ML 100 ML IV CONT (20:58)
[2022-10-05 21:57] VITALS: BP 132/61; PULSE 74; RESP 19; TEMP 35.9; O2SAT 98
[2022-10-06 05:22] LABS: Basophils Percent Auto 0.9 % (0.2-1.2); Eosinophils Absolute Auto 0.2 K/mm3 (0-0.3); Hematocrit 34.8 % (37.0-47.0); Hemoglobin 11.3 g/dL (12.0-15.0); Immature Granulocyte Absolute 0.02 K/mm3 (0.00-0.031); Immature Granulocyte Percent A 0.4 % (0-0.5); Lymphocytes Absolute Auto 1.38 K/mm3 (0.9-3.2); Lymphocytes Percent Auto 29.4 % (18.3-44.2); Mean Corpuscular HGB Conc 32.5 g/dl (32-36); Mean Corpuscular Volume 95.6 fl (80-100); Mean Platelet Volume 10.2 fl (7.4-10.4); Monocytes Absolute Auto 0.9 K/mm3 (0.1-0.6); Monocytes Percent Auto 19.6 % (2.6-8.5); Neutrophils Absolute Auto 2.2 K/mm3 (1.3-6.7); Neutrophils Percent Auto 45.7 % (45.5-73.1); Platelet Count Result 164 k/mm3 (150-375); Red Blood Count 3.64 M/mm3 (4.2-5.4); Red Cell Distribution Width 12.8 % (11.5-14.5); White Blood Count 4.7 K/mm3 (4.5-10.0)
[2022-10-06 05:35] LABS: Alanine Aminotransferase 9 U/L (6-35); Albumin Level 3.2 g/dL (3.5-5.1); Alkaline Phosphatase 64 U/L (38-126); Anion Gap -2 mmol/L (8-16); Aspartate Amino Transferase 31 U/L (14-36); Bilirubin,Total 1.2 mg/dL (0.2-1.3); Blood Urea Nitrogen 13 mg/dL (7-17); Calcium 7.9 mg/dL (8.4-10.2); Carbon Dioxide 29 mmol/L (22-30); Chloride 106 mmol/L (98-107); Estimated CRCL calculation 49 ml/min; Estimated Glomerular Filt Rate > 60; Glucose 89 mg/dL (65-110); Sodium 133 mmol/L (137-145)
[2022-10-06 06:00] VITALS: BP 138/64; PULSE 68; RESP 18; TEMP 35.7; O2SAT 99
[2022-10-06] MEDS: CARBIDOPA/LEVODOPA 25/100 MG TABLET 1 TABLET PO ×3 (06:42→21:17)
--- NOTE | 2022-10-06 09:57 | PM.IMPN ---
Progress Note: A&P Assessment and Plan (1) Episode of generalized weakness: Code(s): R53.1 - Weakness Status: Acute (2) Dehydration: Code(s): E86.0 - Dehydration Status: Acute (3) Parkinson disease: Code(s): G20 - Parkinson's disease Status: Acute (4) Acute hyponatremia: Code(s): E87.1 - Hypo-osmolality and hyponatremia Status: Acute (5) Hyponatremia: Code(s): E87.1 - Hypo-osmolality and hyponatremia Status: Acute (6) Hypokalemia: Code(s): E87.6 - Hypokalemia Status: Acute Plan Assessment and Plan (1) Episode of generalized weakness: ?Code(s): R53.1 - Weakness ?Status:?Acute ?Assessment and Plan: PT OT evaluation Most likely multifactorial secondary to decreased oral intake and dehydration Encourage oral hydration Received iV fluid May need placement (2) Dehydration: ?Code(s): E86.0 - Dehydration ?Status:?Acute ?Assessment and Plan: Corrected Discontinue IV fluid (3) Parkinson disease: ?Code(s): G20 - Parkinson's disease ?Status:?Acute ?Assessment and Plan: ?uncontrolled Parkinson disease, rest tremor, ?patient has been off medication for long time, unable to tolerate medication ? consult neurologist for evaluation and treatment, consider essential tremor and uncontrolled Parkinson disease. patient agrees to take low-dose of Sinemet 25-100mg t.i.d. p.o. for Parkinson disease Tremor is better controlled (4) Acute hyponatremia: ?Code(s): E87.1 - Hypo-osmolality and hyponatremia ?Status:?Acute ?Assessment and Plan: Most likely related to dehydration give IV fluid (5) Hyponatremia: ?Code(s): E87.1 - Hypo-osmolality and hyponatremia ?Status:?Acute ?Assessment and Plan: ?continue normal saline? 100 mL/hour add sodium chloride tablet p.o. (6) Hypokalemia: ?Code(s): E87.6 - Hypokalemia ?Status:?Acute ?Assessment and Plan: ?start potassium chloride 20 mEq. b.i.d.? P.o. corrected Patient mother is 107 years old, she cannot take our her, patient is awaiting for placement to SNF Subjective Date/time seen: 10/06/22 09:57 I saw and examined patient today, patient feels better today, tremor is better controlled. No new issue events over the night Exam Narrative: GENERAL: Well appearing, well-nourished, non-toxic, in no acute distress. HEAD: Normocephalic, atraumatic.? dry mucous members NECK: Supple. No adenopathy, no masses. RESPIRATORY: Airway patent, respirations nonlabored. Clear to auscultation bilaterally, no rales, rhonchi, wheezing. CARDIOVASCULAR: Regular rate and rhythm without murmurs, rubs, or gallops. Peripheral pulses 2+ and equal bilaterally. ABDOMINAL: Soft, nontender, nondistended, no hepatosplenomegaly. Normoactive BS. MUSCULOSKELETAL: Moves all extremities.? general weakness,/ROM intact without gross deformities or TTP. No edema. No calf tenderness.? No chest wall tenderness palpation. SKIN: Warm, dry, normal color. No rashes. NEURO:? alert, oriented x3. Speech clear. Cranial nerves II-XII grossly intact.? uncontrolled tremor due to Parkinson disease PSYCHIATRIC: Appropriate mood and affect. Normal interaction. Objective Data Vital Signs Vital Signs: Vital Signs - 24 hr 10/05/22 14:00 10/05/22 10:20 10/05/22 21:57 Temperature 98.1 F 96.6 F L Pulse Rate 79 79 74 Respiratory Rate 20 20 19 Blood Pressure 130/55 L 132/61 Pulse Oximetry 98 98 98 Oxygen Delivery Room Air 10/05/22 20:00 10/06/22 06:00 10/06/22 08:53 Temperature 96.2 F L Pulse Rate 74 68 Respiratory Rate 19 18 Blood Pressure 138/64 Pulse Oximetry 98 99 Oxygen Delivery Room Air Room Air Intake/Output Intake/Output: Intake & Output 10/03/22 10/04/22 10/05/22 10/06/22 23:59 23:59 23:59 23:59 Intake Total 1480 1990 0 Output Total 1450 850 Balance 30 1140 0 Meds/Results Medications: Active Medications Generic Name Dose
[2022-10-06] MEDS: ENOXAPARIN 40 MG/0.4 ML SYRINGE SUB-Q (10:19)
[2022-10-06 10:20] VITALS: PULSE 68; RESP 18; O2SAT 99
[2022-10-06] MEDS: SODIUM CHLORIDE 1 GM TABLET PO ×3 (10:20→18:07)
[2022-10-06] MEDS: POTASSIUM CHLORIDE 20 MEQ PACKET (FOR LIQUID) PO ×2 (10:20→18:07)
[2022-10-06] MEDS: FAMOTIDINE 20 MG TABLET PO ×2 (10:20→21:16)
[2022-10-06 14:00] VITALS: BP 152/94; PULSE 87; RESP 20; TEMP 36.8; O2SAT 100
[2022-10-06 20:00] VITALS: PULSE 87; RESP 20; O2SAT 100
[2022-10-06 20:25] VITALS: O2SAT 97
[2022-10-06 22:00] VITALS: BP 147/65; PULSE 84; RESP 20; TEMP 36.9; O2SAT 98
[2022-10-07] MEDS: CARBIDOPA/LEVODOPA 25/100 MG TABLET 1 TABLET PO ×2 (05:49→13:00)
[2022-10-07 06:00] VITALS: BP 144/66; PULSE 78; RESP 22; TEMP 36.9; O2SAT 98
[2022-10-07] MEDS: ENOXAPARIN 40 MG/0.4 ML SYRINGE SUB-Q (10:11)
[2022-10-07] MEDS: POTASSIUM CHLORIDE 20 MEQ PACKET (FOR LIQUID) PO (10:12)
[2022-10-07] MEDS: FAMOTIDINE 20 MG TABLET PO (10:12)
[2022-10-07] MEDS: SODIUM CHLORIDE 1 GM TABLET PO ×2 (10:12→13:00)
--- NOTE | 2022-10-07 11:36 | PM.DS ---
DS: Admitting Diagnosis Discharge Date 10/07/22 Admitting Diagnosis Generalized Weakness DS: Discharge Diagnosis Discharge Diagnosis (1) Tremor: Code(s): R25.1 - Tremor, unspecified Status: Acute (2) Hypertension: Code(s): I10 - Essential (primary) hypertension Status: Acute (3) Parkinson disease: Code(s): G20 - Parkinson's disease Status: Acute DS: Summary Hospital Course Reason for hospitalization: Generalized weakness Hospital Course: 82 years old female with past medical history of parkinsonism presented to the ER with worsening weakness patient was not taking her medication at home patient unable to use a walker patient unable to care for herself patient. she had not been taking her Parkinson's meds, Neurology was consulted, started on sinnemet, slowly building up dose. Treated supportively with IV fluids. Discharged to SNF in stable condition. Status at Discharge Functional status at discharge: uses cane/walker Overall status at discharge: patient is progressing back to baseline Time Spent with Patient Time attestation: Total time spent providing and/or coordinating discharge services: Time spent: Greater than 30 minutes Exam Narrative: GENERAL: Well appearing, well-nourished, non-toxic, in no acute distress. HEAD: Normocephalic, atraumatic.? dry mucous members NECK: Supple. No adenopathy, no masses. RESPIRATORY: Airway patent, respirations nonlabored. Clear to auscultation bilaterally, no rales, rhonchi, wheezing. CARDIOVASCULAR: Regular rate and rhythm without murmurs, rubs, or gallops. Peripheral pulses 2+ and equal bilaterally. ABDOMINAL: Soft, nontender, nondistended, no hepatosplenomegaly. Normoactive BS. MUSCULOSKELETAL: Moves all extremities.? general weakness,/ROM intact without gross deformities or TTP. No edema. No calf tenderness.? No chest wall tenderness palpation. SKIN: Warm, dry, normal color. No rashes. NEURO:? alert, oriented x3. Speech clear. Cranial nerves II-XII grossly intact.? uncontrolled tremor due to Parkinson disease PSYCHIATRIC: Appropriate mood and affect. Normal interaction. Discharge Plan Discharge Attending physician on discharge: Mikala Narvaez Consulting providers: Ana Sanchez ; Ceferino Dillon ; Bernard Casanova ; Syed Rodas Discharging Clinician: Mikala Narvaez Anticipated Discharge Date/Time: 10/07/22 11:26 Patient Disposition: SNF Activity: as tolerated Diet: as tolerated Stand Alone Forms: General Discharge Information Follow-up/Referrals: Ana Sanchez MD [Physician] - 2 Weeks Discharge Medications: New carbidopa-levodopa [Sinemet] 25-100 mg tablet See Rx Instructions .ROUTE .COMPLEX Qty: 60 1RF Rx Instructions: Week 1: 1/2 Tab at bedtime for 7 days Week 2: 1/2 tablet mid day and 1/2 tablet bedtime for 7 days Week 3: 1/2 tablet morning, mid day and bedtime for 7 days Week 4: 1/2 tablet morning 1/2 tablet mid day , 1 tablet at bedtime for 7 days Week 5: 1/2 tablet morning, 1 tablet mid day, 1 tablet at bedtime for 7 days Week 6: 1 tablet morning, mid day, bedtime continue Continued losartan 50 mg tablet 50 mg PO DAILY metoprolol succinate 50 mg tablet extended release 24 hr 50 mg PO DAILY vitamin B complex [B Complex-Vitamin B12] Tablet 1 tablet PO DAILY vitamin E 268 mg (400 unit) capsule 1 cap PO DAILY Discontinued citalopram 40 mg tablet 40 mg PO DAILY hydrochlorothiazide 12.5 mg tablet 12.5 mg PO DAILY Date of admission: 10/05/22 13:59 Primary Care Provider: JADYNCORRY Admitting Provider: Gifty Flores M.A. Attending physician on admission: Gifty Flores M.A. Condition: Stable [facility]illing [facility] Discharge Hospital Discharge: 71355 Hosp D/C >30 Min
[2022-10-07 14:00] VITALS: BP 154/81; PULSE 73; RESP 16; TEMP 36.6; O2SAT 100
== END 2022-10-07 16:21 | DRG 641 ==
LOC: ANHED 10-04 01:13 → ANH3MED 10-04 02:47
PROVIDERS: Emergency Medicine; Admitting Provider Internal Medicine; Emergency Provider Emergency Medicine; PCP Nurse Practitioner Family; Visit Provider Internal Medicine
DX: E86.0 Dehydration (principal); E87.1 Hypo-osmolality and hyponatremia; E87.6 Hypokalemia; G20 Parkinson's disease; Z20.822 Contact with and (suspected) exposure to COVID-19
CPT/HCPCS: 36415; 51701; 70450; 71045; 80053; 80307; 81001; 82570; 83605; 83735; 84145; 84484; 85025; 87636; 93005; 96360; 96361; 96372; 97116; 97161; 97165; 97530; 97535; 99285; A9270; G0378; J1650; J7030

== ENCOUNTER 2022-11-08 12:50 | Outpatient (CLI) | payer MEDICARE, SELFPAY ==
[2022-11-08 15:56] LABS: Alanine Aminotransferase 17 U/L (6-35); Albumin Level 4.1 g/dL (3.5-5.1); Alkaline Phosphatase 101 U/L (38-126); Anion Gap 6 mmol/L (8-16); Aspartate Amino Transferase 20 U/L (14-36); Bilirubin,Total 1.1 mg/dL (0.2-1.3); Blood Urea Nitrogen 17 mg/dL (7-17); Calcium 8.9 mg/dL (8.4-10.2); Carbon Dioxide 31 mmol/L (22-30); Chloride 104 mmol/L (98-107); Estimated Glomerular Filt Rate > 60; Glucose 106 mg/dL (65-110); Potassium 3.8 mmol/L (3.4-5.0); Sodium 141 mmol/L (137-145)
[2022-11-08 16:50] LABS: Vitamin B12 > 1000.0 pg/mL (239-931)
== END 2022-11-08 12:51 | disposition home or self-care (01) ==
PROVIDERS: PCP Emergency Medicine
DX: E87.1 Hypo-osmolality and hyponatremia (principal); E87.6 Hypokalemia; E53.8 Deficiency of other specified B group vitamins
CPT/HCPCS: 36415; 80053; 82607

== ENCOUNTER 2022-12-02 18:54 | Emergency (ER) | payer MEDICARE, SELFPAY ==
[2022-12-02] VITALS (9 sets, daily range): BP systolic 157–176; BP diastolic 81–100; PULSE 51–73; RESP 11–19; TEMP 36.7; O2SAT 98–100
--- NOTE | ~2022-12-02 | XR_ITS ---
Portable chest x-ray Comparison: 10/03/2022 Clinical History: Hypertension, chest pressure Findings: Minimal haziness of the left lung as compared to the right could reflect small layering ef fusion. Right lung is clear. Cardiomediastinal silhouette is stable. Bones and soft tissues are unre markable. Impression: Questionable small layering left pleural effusion. Reviewed, dictated and finalized at location . Impression: Questionable small layering left pleural effusion.
--- NOTE | 2022-12-02 22:08 | ECG_ITS ---
Measurements Intervals [place] Rate: 56 P: 51 LA: 214 QRS: -35 QRSD: 142 T: 56 QT: 476 QTc: 462 Interpretive Statements SINUS BRADYCARDIA WITH FIRST DEGREE AV BLOCK LEFT AXIS DEVIATION LEFT BUNDLE BRANCH BLOCK BASELINE ARTIFACT- I, II, AVR ABNORMAL ECG COMPARED TO ECG 10/03/2022 18:09:33 SINUS BRADYCARDIA NOW PRESENT Electronically Signed On 12-03-2022 6:41:09 CDT by Bernard Casanova D.O.
--- NOTE | 2022-12-02 23:24 | ED.GENADULT ---
HPI - General Adult General Chief complaint: Recheck/Abnormal Lab/Rx <Ceferino Grewal PA-C - Last Filed: 12/03/22 03:02> Stated complaint: BP elevated <BLAYNE Kerr Last Filed: 12/03/22 03:02> Time Seen by Provider: 12/02/22 22:55 <BLAYNE Kerr Last Filed: 12/03/22 03:02> Source: patient <BLAYNE Kerr Last Filed: 12/03/22 03:02> Mode of arrival: ambulatory <BLAYNE Kerr Last Filed: 12/03/22 03:02> Limitations: no limitations <BLAYNE Kerr Last Filed: 12/03/22 03:02> History of Present Illness HPI narrative: This is an 82-year-old female who presents to the ED with chief complaint of hypertension. She is here with home health nurse who is supplementing the history. Patient states that she had an episode of chest pain and palpitations yesterday but that this has completely resolved. She states she has chest pressure ongoing for several years. Home health nurses concern for blood pressures in the 160s-180s systolic at home. Reports diastolic pressures in the 70s to 100s. Triage note mentions headache but she denies this. States she has chronic neck pain. Patient denies vision changes, numbness, weakness, shortness of breath, cough, abdominal pain, nausea, vomiting. <BLAYNE Kerr Last Filed: 12/03/22 03:02> Related Data Home medications: Home Medications Medication Instructions Recorded Confirmed losartan 50 mg tablet 50 mg PO DAILY 10/04/22 10/04/22 metoprolol succinate 50 mg 50 mg PO DAILY 10/04/22 10/04/22 tablet,extended release 24 hr vitamin B complex (B 1 tablet PO DAILY 10/04/22 10/04/22 Complex-Vitamin B12 tablet) vitamin E 268 mg (400 unit) capsule 1 cap PO DAILY 10/04/22 10/04/22 citalopram 20 mg tablet 20 mg PO DAILY 11/22/22 <BLAYNE Kerr Last Filed: 12/03/22 03:02> Allergies/adverse reactions: Allergies Allergy/AdvReac Type Severity Reaction Status Date / Time codeine Allergy Mild Hallucinati Verified 11/22/22 09:15 ng mesalamine Allergy Mild Nausea and Verified 11/22/22 09:15 Vomiting sulfasalazine Allergy Mild Nausea and Verified 11/22/22 09:15 Vomiting <eCferino Grewal PA-C - Last Filed: 12/03/22 03:02> Review of Systems Review of Systems: CONSTITUTIONAL: Denies fever, chills, or sweats. EYES: Denies visual changes, redness, or discharge. ENT: Denies rhinorrhea, congestion, sore throat, or otalgia. CARDIOVASCULAR: See HPI RESPIRATORY: Denies cough or dyspnea. GASTROINTESTINAL: Denies abdominal pain, nausea, vomiting, or diarrhea. GENITOURINARY: Denies dysuria or hematuria. SKIN: Denies rash or itching. MUSCULOSKELETAL: Denies back pain, joint pain, or myalgia. NEUROLOGIC: Denies headache, numbness, dizziness, or weakness. PSYCHIATRIC: Denies anxiety or depression. <Ceferino Grewal PA-C - Last Filed: 12/03/22 03:02> PMFSH Social History Social History: Social History Smoking status: Never smoker Alcohol intake: never Substance use: never Substance use type: does not use Lack of Transportation: YES Lack of Food: Never True Current Housing: I Have Housing Concerned About Future Housing: No Difficulty Paying Gas/Electric Bills: No Difficulty Paying for Meds: No Currently Unemployed: No Education: High School Diploma/GED Difficulty w/ Childcare or Family Care: No Spiritual care concerns: No <Ceferino Grewal PA-C - Last Filed: 12/03/22 03:02> Exam Narrative: GENERAL: Well-appearing, well-nourished, and in no acute distress. HEAD: Normocephalic, atraumatic. EYES: PERRLA and EOMI. ENT: Nares clear, no rhinorrhea or epistaxis. Mucous membranes moist. Oropharynx without tonsillar hypertrophy exudate or other lesions. NECK: Supple. No adenopathy or masses. CHEST: No respiratory distress. Clear to auscultation. No wheezes rales or rhonchi HEART: Bradycardic at 58. Regu
[2022-12-03] VITALS (11 sets, daily range): BP systolic 168–178; BP diastolic 76–80; PULSE 50–58; RESP 9–16; O2SAT 99–100
[2022-12-03 00:28] LABS: Basophils Absolute Auto 0.1 K/mm3 (0.0-0.1); Basophils Percent Auto 0.8 % (0.2-1.2); Eosinophils Absolute Auto 0.2 K/mm3 (0-0.3); Eosinophils Percent Auto 3.3 % (0-4.4); Hematocrit 36.5 % (37.0-47.0); Hemoglobin 11.9 g/dL (12.0-15.0); Immature Granulocyte Absolute 0.01 K/mm3 (0.00-0.031); Immature Granulocyte Percent A 0.2 % (0-0.5); Lymphocytes Absolute Auto 1.77 K/mm3 (0.9-3.2); Mean Corpuscular HGB Conc 32.6 g/dl (32-36); Mean Corpuscular Hemoglobin 30.8 pg (26-34); Mean Corpuscular Volume 94.6 fl (80-100); Mean Platelet Volume 10.1 fl (7.4-10.4); Monocytes Absolute Auto 0.8 K/mm3 (0.1-0.6); Monocytes Percent Auto 13.1 % (2.6-8.5); Neutrophils Absolute Auto 3.3 K/mm3 (1.3-6.7); Neutrophils Percent Auto 53.6 % (45.5-73.1); Platelet Count Result 217 k/mm3 (150-375); Red Blood Count 3.86 M/mm3 (4.2-5.4); Red Cell Distribution Width 13.2 % (11.5-14.5); White Blood Count 6.1 K/mm3 (4.5-10.0)
[2022-12-03 00:38] LABS: Alanine Aminotransferase 14 U/L (6-35); Albumin Level 3.8 g/dL (3.5-5.1); Alkaline Phosphatase 92 U/L (38-126); Anion Gap 2 mmol/L (8-16); Aspartate Amino Transferase 22 U/L (14-36); Bilirubin,Total 1.1 mg/dL (0.2-1.3); Blood Urea Nitrogen 17 mg/dL (7-17); Calcium 8.9 mg/dL (8.4-10.2); Carbon Dioxide 34 mmol/L (22-30); Chloride 102 mmol/L (98-107); Estimated CRCL calculation 54 ml/min; Estimated Glomerular Filt Rate > 60; Glucose 95 mg/dL (65-110); Potassium 4.3 mmol/L (3.4-5.0); Sodium 138 mmol/L (137-145)
[2022-12-03 00:49] LABS: Troponin I < 0.012 ng/mL (0.000-0.034)
[2022-12-03 00:50] LABS: Troponin I < 0.012 ng/mL (0.000-0.034)
== END 2022-12-03 03:13 | disposition home or self-care (01) ==
PROVIDERS: Emergency Provider Physician Assistant; PCP Nurse Practitioner Family
DX: I10 Essential (primary) hypertension (principal); R00.1 Bradycardia, unspecified; I44.7 Left bundle-branch block, unspecified; I44.0 Atrioventricular block, first degree
CPT/HCPCS: 36415; 71045; 80053; 84484; 85025; 93005; 99284

== ENCOUNTER 2023-02-25 12:19 | Outpatient (CLI) | payer MEDICARE, SELFPAY ==
[2023-02-25 14:01] LABS: Anion Gap 7 mmol/L (8-16); Blood Urea Nitrogen 14 mg/dL (7-17); Calcium 8.7 mg/dL (8.4-10.2); Carbon Dioxide 32 mmol/L (22-30); Chloride 97 mmol/L (98-107); Estimated Glomerular Filt Rate > 60; Glucose 89 mg/dL (65-110); Potassium 3.7 mmol/L (3.4-5.0); Sodium 136 mmol/L (137-145)
== END 2023-02-25 12:20 | disposition home or self-care (01) ==
PROVIDERS: PCP Nurse Practitioner Family; Visit Provider Internal Medicine
DX: I10 Essential (primary) hypertension (principal)
CPT/HCPCS: 36415; 80048

== ENCOUNTER 2023-08-04 05:53 | Emergency (ER) | payer MEDICARE, SELFPAY ==
[2023-08-04 05:52] VITALS: BP 153/77; PULSE 69; RESP 18; TEMP 36.8; O2SAT 98
--- NOTE | 2023-08-04 06:11 | ED.GENADULT ---
HPI - General Adult General Chief complaint: Dental/Oral Stated complaint: Loose tooth, bleeding from gums Time Seen by Provider: 08/04/23 06:10 History of Present Illness HPI narrative: This is an 83-year-old female presenting with dental pain. patient's lower incisors and lose for months. She has been having bleeding around the site. She has developed a clot there. She called an ambulance to come the hospital see what she should do about blood clot. This time she is not having active bleeding. She has not attempted to see a dentist. No other complaints. Related Data Home Medications Medication Instructions Recorded Confirmed losartan 50 mg tablet 50 mg PO DAILY 10/04/22 07/03/23 metoprolol succinate 50 mg 50 mg PO DAILY 10/04/22 07/03/23 tablet,extended release 24 hr vitamin B complex (B 1 tablet PO DAILY 10/04/22 07/03/23 Complex-Vitamin B12 tablet) vitamin E 268 mg (400 unit) capsule 1 cap PO DAILY 10/04/22 07/03/23 citalopram 20 mg tablet 20 mg PO DAILY 11/22/22 07/03/23 Allergies Allergy/AdvReac Type Severity Reaction Status Date / Time codeine Allergy Mild Hallucinati Verified 08/04/23 05:59 ng mesalamine Allergy Mild Nausea and Verified 08/04/23 05:59 Vomiting sulfasalazine Allergy Mild Nausea and Verified 08/04/23 05:59 Vomiting PMFSH Social History Social History Smoking status: Never smoker Alcohol intake: never Substance use: never Substance use type: does not use Lack of Transportation: YES Lack of Food: Never True Current Housing: I Have Housing Concerned About Future Housing: No Difficulty Paying Gas/Electric Bills: No Difficulty Paying for Meds: No Currently Unemployed: No Education: High School Diploma/GED Difficulty w/ Childcare or Family Care: No Spiritual care concerns: No Exam Narrative: APPEARANCE: No apparent distress. appears older than her stated age Oral: patient has a stable blood clot over the lower frontal incisor, no active bleeding EYES: EOMI, NOSE: Atraumatic NECK: Trachea midline RESPIRATORY: No increased rate of breathing CARDIOVASCULAR: RRR, ABDOMINAL: Non-distended MUSCULOSKELETAl: No obvious deformities NEURO: Alert. Moving 4/4 extremities, tremor SKIN:: Warm, dry. Normal color PSYCHIATRIC: Normal affect Course Vital Signs Vital signs: Vital Signs Temperature 98.2 F 08/04/23 05:52 Pulse Rate 69 08/04/23 05:52 Respiratory Rate 08/04/23 05:52 Blood Pressure 153/77 H 08/04/23 05:52 Pulse Oximetry 98 08/04/23 05:52 Oxygen Delivery Room Air 08/04/23 05:52 Temperature 98.2 F 08/04/23 05:52 Pulse Rate 69 08/04/23 05:52 Respiratory Rate 18 08/04/23 05:52 Blood Pressure 153/77 H 08/04/23 05:52 Pulse Oximetry 98 08/04/23 05:52 Oxygen Delivery Room Air 08/04/23 05:52 Medical Decision Making MDM Narrative Medical decision making narrative: -Course: An 83-year-old presenting for a blood clot around her tooth. There is no active bleeding at this time. I am not going to remove the clot as that may precipitate more bleeding. Patient has been dealing with this issue for several months and there is no emergent action to be taken in the ED. She has been instructed to follow-up with a dentist Vital Signs Vital Signs: Vital Signs Temperature 98.2 F 08/04/23 05:52 Pulse Rate 08/04/23 05:52 Respiratory Rate 08/04/23 05:52 Blood Pressure 153/77 H 08/04/23 05:52 Pulse Oximetry 98 08/04/23 05:52 Oxygen Delivery Room Air 08/04/23 05:52 Temperature 98.2 F 08/04/23 05:52 Pulse Rate 08/04/23 05:52 Respiratory Rate 08/04/23 05:52 Blood Pressure 153/77 H 08/04/23 05:52 Pulse Oximetry 98 08/04/23 05:52 Oxygen Delivery Room Air 08/04/23 05:52 Discharge Plan Discharge Clinical Impression: At risk for dental problems Condition: Stable Instru
--- NOTE | 2023-08-04 06:40 | PC.NURSE ---
this rn contacted pt daughter to arrange pick u p for pt. pt daughter stated she was out of town. pt daughter stated her caregiver, jessee would be a good contact. this rn spoke with jessee who stated she could be there within an hour.
[2023-08-04 07:07] VITALS: BP 133/83; PULSE 63; RESP 16; O2SAT 98
[2023-08-04 08:26] VITALS: BP 130/59; PULSE 63; RESP 16; O2SAT 98
== END 2023-08-04 08:33 | disposition home or self-care (01) ==
PROVIDERS: Emergency Provider Emergency Medicine; PCP Nurse Practitioner Family
DX: K08.89 Other specified disorders of teeth and supporting structures (principal); K06.8 Other specified disorders of gingiva and edentulous alveolar ridge
CPT/HCPCS: 99281

== ENCOUNTER 2023-11-20 01:18 | Emergency (ER) | payer MEDICARE, SELFPAY ==
[2023-11-20] VITALS (11 sets, daily range): BP systolic 141–182; BP diastolic 71–118; PULSE 53–67; RESP 12–22; TEMP 36.8; O2SAT 99–100
--- NOTE | ~2023-11-20 | CT_ITS ---
CT of the Abdomen and Pelvis: Indication: Abdominal pain Technique: 2.5 mm axial scans were obtained through the abdomen and pelvis following intravenous adm inistration of 100 cc of Omnipaque 350. Dose reduction technique was used on this scan by utilizing a utomated exposure control and iterative reconstruction technique. The dose-length product (DLP) was 9 24.34 mGy-cm. Findings: Scans through the lung bases are unremarkable. The liver, spleen, pancreas, adrenals and kidneys are within normal limits. Cholecystectomy clips are present. No evidence of aortic aneurysm. No lymphadenopathy. No bowel obstruction or bowel wall thickening. There is no evidence to suggest acute appendicitis. Images through the pelvis were performed. Urinary bladder unremarkable. No adnexal mass seen. No asci lazaro. Degenerative change of the lumbar spine noted. Impression: No acute abnormalities seen. Reviewed, dictated and finalized at [facility]. Impression: No acute abnormalities seen.
--- NOTE | ~2023-11-20 | XR_ITS ---
Portable chest x-ray Comparison: None Clinical History: Shortness of breath Findings: Lungs are clear, without focal consolidation or pleural effusion. Cardiomediastinal silho uette is unremarkable. Bones and soft tissues are unremarkable. Impression: Clear lungs. Reviewed, dictated and finalized at [facility]. Impression: Clear lungs.
--- NOTE | 2023-11-20 01:23 | ECG_ITS ---
SEE SCANNED COPY FOR CONFIRMED REPORT MTDD
[2023-11-20 01:36] LABS: Basophils Absolute Auto 0.1 K/mm3 (0.0-0.1); Eosinophils Absolute Auto 0.2 K/mm3 (0-0.3); Eosinophils Percent Auto 2.7 % (0-4.4); Hematocrit 37.1 % (37.0-47.0); Hemoglobin 12.3 g/dL (12.0-15.0); Immature Granulocyte Absolute 0.02 K/mm3 (0.00-0.031); Immature Granulocyte Percent A 0.3 % (0-0.5); Lymphocytes Absolute Auto 2.04 K/mm3 (0.9-3.2); Lymphocytes Percent Auto 26.5 % (18.3-44.2); Mean Corpuscular HGB Conc 33.2 g/dl (32-36); Mean Corpuscular Hemoglobin 31.6 pg (26-34); Mean Corpuscular Volume 95.4 fl (80-100); Monocytes Absolute Auto 0.8 K/mm3 (0.1-0.6); Monocytes Percent Auto 10.7 % (2.6-8.5); Neutrophils Absolute Auto 4.5 K/mm3 (1.3-6.7); Neutrophils Percent Auto 58.8 % (45.5-73.1); Platelet Count Result 229 k/mm3 (150-375); Red Blood Count 3.89 M/mm3 (4.2-5.4); White Blood Count 7.7 K/mm3 (4.5-10.0)
--- NOTE | 2023-11-20 01:40 | ED.SOB ---
HPI - SOB/Dyspnea General Chief Complaint: Shortness of Breath/Dyspnea Stated Complaint: SOB History of Present Illness HPI Narrative: Patient presents with shortness of breath this started earlier today when she lay down, at that she is here sitting up her symptoms have essentially resolved. She also had a sensation her heart feeling strange and of her having some right upper quadrant discomfort which is also resolved. Related Data Home Medications Medication Instructions Recorded Confirmed losartan 50 mg tablet 50 mg PO DAILY 10/04/22 07/03/23 metoprolol succinate 50 mg 50 mg PO DAILY 10/04/22 07/03/23 tablet,extended release 24 hr vitamin B complex (B 1 tablet PO DAILY 10/04/22 07/03/23 Complex-Vitamin B12 tablet) vitamin E 268 mg (400 unit) capsule 1 cap PO DAILY 10/04/22 07/03/23 citalopram 20 mg tablet 20 mg PO DAILY 11/22/22 07/03/23 Allergies Allergy/AdvReac Type Severity Reaction Status Date / Time codeine Allergy Mild Hallucinati Verified 08/04/23 05:59 ng mesalamine Allergy Mild Nausea and Verified 08/04/23 05:59 Vomiting sulfasalazine Allergy Mild Nausea and Verified 08/04/23 05:59 Vomiting Review of Systems Review of Systems: All systems reviewed & are unremarkable except as noted in HPI and below PMFSH Social History Social History Smoking status: Never smoker Alcohol intake: never Substance use: never Substance use type: does not use Lack of Transportation: YES Lack of Food: Never True Current Housing: I Have Housing Concerned About Future Housing: No Difficulty Paying Gas/Electric Bills: No Difficulty Paying for Meds: No Currently Unemployed: No Education: High School Diploma/GED Difficulty w/ Childcare or Family Care: No Spiritual care concerns: No Exam Narrative: EXAMINATION OF ORGAN SYSTEMS/BODY AREAS: Constitutional: Vital signs per nursing GENERAL:[No acute distress, non-toxic appearing.] HEAD: Normal with no signs of head trauma. EYES: EOMI, conjunctiva normal ENT: Hearing grossly intact LUNGS: Nonlabored breathing. HEART: [Regular rate and rhythm] ABD: [Soft], minimal tender to deep palpation right upper quadrant EXT: Bilateral lower extremity edema SKIN: [No rashes or lesions.] NEURO: [Alert and oriented x 3. No gross focal sensory or strength deficits.] PSYCH: Normal affect Course Vital Signs Vital signs: Vital Signs Temperature 98.2 F 11/20/23 01:16 Pulse Rate 67 11/20/23 01:16 Respiratory Rate 18 11/20/23 01:16 Blood Pressure 158/83 H 11/20/23 01:16 Pulse Oximetry 100 11/20/23 01:16 Temperature 98.2 F 11/20/23 01:16 Pulse Rate 56 L 11/20/23 03:48 Respiratory Rate 12 11/20/23 03:48 Blood Pressure 182/75 H 11/20/23 03:48 Pulse Oximetry 99 11/20/23 03:48 Oxygen Delivery Room Air 11/20/23 01:39 MDM - SOB/Dyspnea MDM Narrative Medical decision making narrative: Patient presenting with sensation of dyspnea, heart feeling weird, and right upper quadrant discomfort, which is all largely resolved. She is well-appearing here, no distress, with very minimal tenderness to deep palpation right upper quadrant, nonlabored respirations, clear lungs to auscultation bilaterally, though she does have chronic tremors. Differential includes ACS/MT, pneumonia, biliary colic or cholecystitis. EKG on my independent interpretation shows sinus bradycardia rate 54, very limited by artifact, what does appear to be possibly atrial flutter however difficult to ascertain, vs first degree heart block, no ST elevations or depressions, there is left axis deviation. Left bundle-branch block. I am unable to open EKGs at this time due to system-wide technical issues but old EKG reports do note left bundle branch block so this is not new. Chest x-ray my own independent interpretation does not show any obvious consolidations, cardiomegaly, pneumothor
[2023-11-20 01:48] LABS: Alanine Aminotransferase 11 U/L (6-35); Albumin Level 4.3 g/dL (3.5-5.1); Alkaline Phosphatase 117 U/L (38-126); Anion Gap 6 mmol/L (4-12); Aspartate Amino Transferase 23 U/L (14-36); Bilirubin,Total 0.7 mg/dL (0.2-1.3); Blood Urea Nitrogen 19 mg/dL (7-17); Calcium 9.4 mg/dL (8.4-10.2); Carbon Dioxide 28 mmol/L (22-30); Chloride 102 mmol/L (98-107); Estimated CRCL calculation 49 ml/min; Estimated Glomerular Filt Rate > 60; Glucose 94 mg/dL (65-110); Magnesium 2.1 mg/dL (1.6-2.3); Potassium 3.8 mmol/L (3.4-5.0); Sodium 136 mmol/L (137-145)
[2023-11-20 01:59] LABS: NT Pro B Type Natriuretic Pept 611 pg/mL (19.9-100); Troponin I < 0.012 ng/mL (0.000-0.034)
--- NOTE | 2023-11-20 05:35 | PC.NURSE ---
Attempted to call patient's daughter/POA. No answer.
--- NOTE | 2023-11-20 05:46 | PC.NURSE ---
Attempted to call center operator to notify/home nurse. No answer.
--- NOTE | 2023-11-20 05:53 | PC.NURSE ---
Profile Saw Setup Operator/home nurse called back and advised that she would be in here in an hour to worm picker the patient.
--- NOTE | 2023-11-20 06:07 | PC.NURSE ---
Patient states that she could not sign her discharge papers. Patient understands discharge instructions and is okay not signing her discharge papers.
--- NOTE | 2023-11-20 08:08 | PC.NURSE ---
Caregiver here to take patient home. Pt A&Ox4 in no acute distress, in good spirits. Pt provided non-slip socks, assisted into wheelchair. Wheeled out by PCT to assist into car. VS as documented.
== END 2023-11-20 08:10 | disposition home or self-care (01) ==
PROVIDERS: Emergency Provider Emergency Medicine; PCP Nurse Practitioner Family
DX: R06.00 Dyspnea, unspecified (principal); R10.11 Right upper quadrant pain
CPT/HCPCS: 36415; 71045; 74177; 80053; 83735; 83880; 84484; 85025; 93005; 99284; Q9967

== ENCOUNTER 2024-03-08 08:23 | Emergency (ER) | payer MEDICARE, SELFPAY ==
[2024-03-08 08:35] VITALS: BP 167/84; PULSE 60; RESP 16; TEMP 36.2; O2SAT 95
--- NOTE | 2024-03-08 08:43 | ECG_ITS ---
Test Date: 2024-03-08 08:44:31 Measurements Intervals [place] Rate: 54 P: 30 AL: 234 QRS: -45 QRSD: 144 T: 110 QT: 499 QTc: 476 Interpretive Statements SINUS BRADYCARDIA WITH FIRST DEGREE AV BLOCK WITH OCCASIONAL SUPRAVENTRICULAR PREMATURE COMPLEXES LEFT AXIS DEVIATION [QRS AXIS < -30] LEFT BUNDLE BRANCH BLOCK [120+ ms QRS DURATION, 80+ ms Q/S IN V1/V2, 85+ ms R IN I/aVL/V5/V6] ABNORMAL ECG No previous ECG available for comparison Electronically Signed On 03-08-2024 17:08:29 CDT by Barrera Braga M.D.
--- NOTE | 2024-03-08 09:07 | ED.GENADULT ---
HPI - General Adult General Chief complaint: Overdose Stated complaint: accidental OD Time Seen by Provider: 03/08/24 09:06 Source: patient Mode of arrival: EMS Limitations: no limitations History of Present Illness HPI narrative: Patient is a 84 y/o female, with PMH of Parkinson's Disease, who presents to the ED via EMS with concern for possible overdose. Patient reports she typically takes her home medications in the morning. She did not take them until last night yesterday, including her Carbidopa levodopa, citalopram. She then took these medications again this morning, less than 12 hours later. She states she began having a fluttering sensation in her chest, and a mild posterior headache, mild dizziness. She then called EMS. She states she feels improved overall currently, but complains of a mild headache still. Denies further dizziness, chest pain, shortness of breath, nausea, vomiting. Related Data Home Medications Medication Instructions Recorded Confirmed losartan 50 mg tablet 50 mg PO DAILY 10/04/22 07/03/23 metoprolol succinate 50 mg 50 mg PO DAILY 10/04/22 07/03/23 tablet,extended release 24 hr vitamin B complex (B 1 tablet PO DAILY 10/04/22 07/03/23 Complex-Vitamin B12 tablet) vitamin E 268 mg (400 unit) capsule 1 cap PO DAILY 10/04/22 07/03/23 citalopram 20 mg tablet 20 mg PO DAILY 11/22/22 07/03/23 Allergies Allergy/AdvReac Type Severity Reaction Status Date / Time codeine Allergy Mild Hallucinati Verified 08/04/23 05:59 ng mesalamine Allergy Mild Nausea and Verified 08/04/23 05:59 Vomiting sulfasalazine Allergy Mild Nausea and Verified 08/04/23 05:59 Vomiting Review of Systems Review of Systems: CONSTITUTIONAL: Denies fever, chills, or sweats. CARDIOVASCULAR: See HPI RESPIRATORY: Denies cough or dyspnea. GASTROINTESTINAL: Denies abdominal pain, nausea, vomiting MUSCULOSKELETAL: Denies back pain, extremity pain, myalgia. NEUROLOGIC: See HPI All systems reviewed & are unremarkable except as noted in HPI and below PMFSH Social History Social History Smoking status: Never smoker Alcohol intake: never Substance use: never Substance use type: does not use Lack of Transportation: YES Lack of Food: Never True Current Housing: I Have Housing Concerned About Future Housing: No Difficulty Paying Gas/Electric Bills: No Difficulty Paying for Meds: No Currently Unemployed: No Education: High School Diploma/GED Difficulty w/ Childcare or Family Care: No Spiritual care concerns: No Exam Narrative: GENERAL: Elderly, well-nourished, non-toxic, in no acute distress. HEAD: Normocephalic, atraumatic. EYES: PERRL/EOMI RESPIRATORY: Airway patent, respirations nonlabored. Clear to auscultation bilaterally, no rales, rhonchi, wheezing. CARDIOVASCULAR: Bradycardic with regular rhythm without murmurs, rubs, or gallops. MUSCULOSKELETAL: Moves all extremities. No gross deformities. SKIN: Warm, dry, normal color. NEURO: A&O X3. Speech clear. Cranial nerves II-XII grossly intact. Steady gait. Tremor of upper extremities and head, consistent with Parkinson's disease. No focal neurologic deficits. PSYCHIATRIC: Appropriate mood and affect. Normal interaction. Course Vital Signs Vital signs: Vital Signs Temperature 97.2 F L 03/08/24 08:35 Pulse Rate 60 03/08/24 08:35 Respiratory Rate 16 03/08/24 08:35 Blood Pressure 167/84 H 03/08/24 08:35 Pulse Oximetry 95 03/08/24 08:35 Oxygen Delivery Room Air 03/08/24 08:35 Temperature 97.2 F L 03/08/24 08:35 Pulse Rate 58 L 03/08/24 09:22 Respiratory Rate 20 03/08/24 09:22 Blood Pressure 167/84 H 03/08/24 09:22 Pulse Oximetry 99 03/08/24 09:22 Oxygen Delivery Room Air 03/08/24 09:15 Medical Decision Making MDM Narrative Medical decision making narrative: Patient presented to ED with concern for possible acc
[2024-03-08 09:15] VITALS: RESP 16; O2SAT 99
[2024-03-08 09:21] LABS: Basophils Absolute Auto 0.1 K/mm3 (0.0-0.1); Basophils Percent Auto 0.8 % (0.2-1.2); Eosinophils Absolute Auto 0.2 K/mm3 (0-0.3); Eosinophils Percent Auto 3.5 % (0-4.4); Hematocrit 37.4 % (37.0-47.0); Hemoglobin 12.3 g/dL (12.0-15.0); Immature Granulocyte Absolute 0.02 K/mm3 (0.00-0.031); Immature Granulocyte Percent A 0.3 % (0-0.5); Lymphocytes Absolute Auto 1.33 K/mm3 (0.9-3.2); Lymphocytes Percent Auto 20.1 % (18.3-44.2); Mean Corpuscular HGB Conc 32.9 g/dl (32-36); Mean Corpuscular Hemoglobin 32.5 pg (26-34); Mean Corpuscular Volume 98.7 fl (80-100); Mean Platelet Volume 10.2 fl (7.4-10.4); Monocytes Absolute Auto 0.9 K/mm3 (0.1-0.6); Monocytes Percent Auto 13.3 % (2.6-8.5); Neutrophils Absolute Auto 4.1 K/mm3 (1.3-6.7); Platelet Count Result 238 k/mm3 (150-375); Red Blood Count 3.79 M/mm3 (4.2-5.4); Red Cell Distribution Width 12.8 % (11.5-14.5); White Blood Count 6.6 K/mm3 (4.5-10.0)
[2024-03-08 09:22] VITALS: BP 167/84; PULSE 58; RESP 20; O2SAT 99
--- NOTE | 2024-03-08 09:29 | PC.NURSE ---
[place] poison control called per Miranda RASCON there is no risk, and no adverse reactions expected from the accidental medications PO ingestion. Pt is clear to go home per [place] poison control.
[2024-03-08 09:34] LABS: Albumin Level 4.1 g/dL (3.5-5.1); Alkaline Phosphatase 103 U/L (38-126); Anion Gap 9 mmol/L (4-12); Aspartate Amino Transferase 19 U/L (14-36); Bilirubin,Total 0.7 mg/dL (0.2-1.3); Blood Urea Nitrogen 19 mg/dL (7-17); Calcium 8.6 mg/dL (8.4-10.2); Carbon Dioxide 30 mmol/L (22-30); Chloride 98 mmol/L (98-107); Estimated Glomerular Filt Rate > 60; Glucose 95 mg/dL (65-110); Potassium 3.4 mmol/L (3.4-5.0); Sodium 137 mmol/L (137-145)
[2024-03-08] MEDS: ACETAMINOPHEN 500 MG TABLET 1000 MG PO (09:45)
[2024-03-08 09:49] LABS: Alanine Aminotransferase < 6 U/L (6-35); Troponin I < 0.012 ng/mL (0.000-0.034)
[2024-03-08 11:12] VITALS: BP 166/81; PULSE 55; RESP 18; O2SAT 97
== END 2024-03-08 11:13 | disposition home or self-care (01) ==
PROVIDERS: Emergency Medicine; Emergency Provider Physician Assistant; PCP Nurse Practitioner Family
DX: R51.9 Headache, unspecified (principal); R00.1 Bradycardia, unspecified; T42.8X1A Poisoning by antiparkinsonism drugs and other central muscle-tone depressants, accidental (unintentional), initial encounter; T43.221A Poisoning by selective serotonin reuptake inhibitors, accidental (unintentional), initial encounter
CPT/HCPCS: 36415; 80053; 83735; 84484; 85025; 93005; 99284; A9270

== ENCOUNTER 2024-10-08 17:08 | Emergency (ER) | payer MEDICARE, SELFPAY ==
--- NOTE | ~2024-10-08 | CT_ITS ---
History: Headache PROCEDURE: CT head without contrast. COMPARISON: 10/03/2022 TECHNIQUE: Axial imaging of the head performed from the skull base to the vertex without IV contrast. Sagittal a nd coronal reformations obtained. DLP: 355 mGy-cm FINDINGS: The ventricles are enlarged. The dilatation of the ventricles is proportional to the degree of sulcal prominence, not uncommon in the senescent brain. Decreased attenuation is identified within the periventricular white matter, likely secondary to micr ovascular ischemic disease, in a patient of this age. There is no mass, mass effect or midline shift. There is no abnormal extra-axial fluid collection or intracranial hemorrhage. Visualized paranasal sinuses are clear. The mastoid air cells are well aerated. No acute displaced fractures within the overlying cranium. Impression: No acute intracranial hemorrhage or suspicious mass effect. Reviewed, dictated and finalized at location A. NG MACHINE TENDER Impression: No acute intracranial hemorrhage or suspicious mass effect.
[2024-10-08 17:09] VITALS: BP 155/86; PULSE 108; RESP 20; TEMP 36.6; O2SAT 100
--- OUTSIDE RECORDS SUMMARY | 2024-10-08 17:11 | XMS_ITS | Continuity of Care Document ---
Author Organization [facility] Address [address] [place] [address] Phone Care Team Providers Care Email Campaign Manager Name Role Phone Mariya Lamb MD Unavailable Unavailabl e Allergies, Adverse Reactions, Alerts Substance Reaction Status Criticality PRAMIPEXOLE DI-HCL Other Active No Inform ation clonidine Nephritis Active No Information ciprofloxacin Other Active No Information sulfasalazine Rash Active No Information Medications Medication Instructions Dosage Effective Dates (start - stop) Status Comments Celexa 20 mg tablet take 1 tablet by oral route every day 20 MG - Active Toprol XL 50 mg tablet,extended release take 1 Tablet by oral route every day 50 MG - Active losartan 50 mg tablet TAKE 1 TABLET BY ORAL ROUTE EVERY DAY 50 MG - Active Lialda 1.2 gram tablet,delayed release take 2 Tablet by oral route every day with a meal 2.4 G - Active carbidopa 25 mg-levodopa 250 mg tablet take 1 tablet by oral route every 6 hours - Active Vitamin D3 1,000 unit capsule take 2 tablets by mouth once daily - Active Celexa 20 mg tablet TAKE 1 TABLET BY MOUTH EVERY DAY 20 MG - No Longer Active Toprol XL 50 mg tablet,extended release take 1 Tablet by oral route every day 50 MG - No Longer Active Results Test Name Date and Time Measure Units Reference Range Abnormal Flag Status Comments Panel Description: UA- Dipstick (office Lab) Fi nal Color (U) Yellow YELLOW STRAW Final Appearance (U) Clear CLEAR Final Glucose (U) Negative NEGATIVE Final Bilirubin (U) Negative NEGATIVE Final Ketones (U) Negative NEGATIVE Final Specific [place] 1.015 1.001 - 1.035 Final Blood (U) Negative NEGATIVE Final pH (U) 7 5 - 8 Final Protein (U) Negative NEGATIVE Final Urobilinogen (U) 0.2 mg/dL 0.2 - 1 Final Nitrite (U) Negative NEGATIVE Final Leukocyte Esterase (U) 1+ NEGATIVE A Final Panel Description: Stool Cards - Screening Roxann l Occult1 Negative NEGATIVE Final Occult2 NEGATIVE Final Occult3 NEGATIVE Final Panel Description: CBC W Auto Differential panel - Blood Final WBC 09:30:58 4.97 K/uL 3.80-10.80 Final Performed by:[facility] ([facility]) RBC 09:30:58 3.84 M/uL 3.80-5.10 Final Performed by:[facility] ([facility]) HGB 09:30:58 12.3 g/dL 11.7-15.5 Final Performed by:[facility] ([facility]) HCT 09:30:58 37.5 % 35.0-45.0 Final Performed by:[facility] ([facility]) MCV 09:30:58 97.7 fL 80.0-100.0 Final Performed by:[facility] ([facility]) MCH 09:30:58 32.0 pg 27.0-33.0 Final Performed by:[facility] ([facility]) MCHC 09:30:58 32.8 g/dL 32.0-36.0 Final Performed by:[facility] ([facility]) RDW 09:30:58 12.2 % 11.0-15.0 Final Performed by:[facility] ([facility]) PLT 09:30:58 231 K/uL 150-400 Final Performed by:[facility] ([facility]) MPV 09:30:58 10.6 fL 6.0-12.0 Final Performed by:[facility] ([facility]) IG # 09:30:58 0.01 K/uL 0.00-0.05 Final Performed by:[facility] ([facility]) IG % 09:30:58 0.2 % 0.0-0.9 Final Performed by:[facility] ([facility]) Neut # 18 09:30:58 3.04 K/uL 1.50-7.80 Final Performed by:[facility] ([facility]) Neut % 18 09:30:58 61.2 % 40.0-75.0 Final Performed by:[facility] ([facility]) Lym # 18 09:30:58 1.21 K/uL 0.85-3.90 Final Performed by:[facility] ([facility]) Lym % 18 09:30:58 24.3 % 16.0-46.0 Final Performed by:[facility] ([facility]) [place] # 18 09:30:58 0.54 K/uL 0.20-1.10 Final Performed by:[facility] ([facility]) [place] % 18 09:30:58 10.9 % 0.0-12.0 Final Performed by:[facility] ([facility]) Eos # 18 09:30:58 0.12 K/uL 0.02-0.50 Final Performed by:[facility] ([facility]) Eos % 18 09:30:58 2.4 % 0.0-7.0 Final Performed by:[facility] ([facility]) Baso # 18 09:30:58 0.05 K/uL 0.00-0.20 Final Performed by:[facility] ([facility]) Baso % 18 09:30:58 1.0 % 0.0-2.0 Final Performed by:[facility] ([facility]) NRBC # 18 09:30:58 0.000 K/uL 0.000-0.012 Final Performed by:[facility] ([facility]) NRBC % 18 09:30:58 0.0 % 0.0-0.2 Final Performed by:[facility] ([facility]) Panel Description: Comprehensive Metabolic Roxann l Sodium 09:30:58 142 mmol/L 135-145 Final Performed by:[facility] ([facility]) Potassium 18 09:30:58 4.0 mmol/L 3.5-5.3 Final Performed by:[facility] ([facility]) Chloride 09:30:58 103 mmol/L 98-107 Final Performed by:[facility] ([facility]) CO2 :30:58 31 mEq/L 19-30 H Final Performed by:[facility] ([facility]) Glucose :30:58 83 mg/dL 65-99 Final Performed by:[facility] ([facility]) BUN :30:58 17 mg/dL 9-20 Final Performed by:[facility] ([facility]) Creatinine 09:30:58 0.69 mg/dL 0.60-1.10 Final Performed by:[facility] ([facility]) BUN/Crea 09:30:58 25 Ratio 6-25 Final Performed by:[facility] ([facility]) Calcium 09:30:58 8.9 mg/dL 8.4-10.2 Final Performed by:[facility] ([facility]) Albumin 09:30:58 3.6 g/dL 3.4-4.8 Final Performed by:[facility] ([facility]) Protein, T 09:30:58 6.9 g/dL 6.3-8.2 Final Performed by:[facility] ([facility]) Globulin 09:30:58 3.3 Calc 1.4-3.5 Final Performed by:[facility] ([facility]) A/G 09:30:58 1.1 Ratio 0.8-2.0 Final Performed by:[facility] ([facility]) Bilirubin, T 09:30:58 1.2 mg/dL 0.2-1.3 Final Performed by:[facility] ([facility]) Alk Phos 09:30:58 73 U/L 38-126 Final Performed by:[facility] ([facility]) ALT :30:58 16 U/L 6-52 Final Performed by:[facility] ([facility]) AST :30:58 19 U/L 10-36 Final Performed by:[facility] ([facility]) EGFR May-15-20 18 09:30:58 >60 mL/min/1 .73m2 >60 Final Performed by:[facility] ([facility]) EGFRAA. 18 09:30:58 >60 mL/min/1 .73m2 >60 Final Performed by:[facility] ([facility]) Panel Description: Lipid Panel Final Cholesterol 09:30:58 130 mg/dL 0-200 Final Performed by:[facility] ([facility]) HDL,D 09:30:58 51 mg/dL 40-120 Final Performed by:[facility] ([facility]) Triglycerides 09:30:58 72 mg/dL 0-150 Final Performed by:[facility] ([facility]) Chol/HDL 09:30:58 2.5 Ratio 3.7-6.7 L Final Performed by:[facility] ([facility]) LDLC 09:30:58 65 md/dL 0-130 Final Performed by:[facility] ([facility]) Advance Directives Directive Yes / No Effective Date File Name No Information Encounters Encounter Description Practice Location Reason(s) For Visit Diagnoses Date Provider Providers Copied on Encounter [facility], [address], [place], [place], [address] , [place] tel: [phone] [place] Encounter for Medicare annual wellness examEssential (primary) hypertensionAtheros clerosis of aortaParkinson's diseaseUlcerative colitis, unspecified, without complicationsMajor depressive disorder, single episode, unspecified 8 Adonis Meraz. [address] [place], [place], [address]. tel:[phone] Referring Provider: Mariya Lamb, [address] [place], [address] . tel:[phone] [facility], [address], [place], [place], [address] , [place] tel: [phone] [place] No Information 8 Adonis Meraz. [address] [place], [place], [address]. tel:[phone] [facility], [address], [place], [place], [address] , tel: [phone] [place] Essential (primary) hypertensionParkins on's diseaseAtherosclero sis of aortaMajor depressive disorder, single episode, unspecified Lamb Mariya. [address] [place], [place], [address]. tel:[phone] Referring Provider: Mariya Lamb, [address] [place], [address] . tel:[phone] [facility], [address], [place], [place], [address] , [place] tel: [phone] [place] No Information Lamb Mariya. [address] [place], [place], [address]. tel:[phone] [employer], [address], [place], [place], [address] , tel: [phone] [place] Essential (primary) hypertensionParkins on's diseaseUlcerative colitis, unspecified, without complicationsMajor depressive disorder, single episode, unspecified Lamb Mariya. [address] [place], [place], [address]. tel:[phone] Referring Provider: Mariya Lamb, [address] [place], [address] . tel:[phone] [facility], [address], [place], [place], [address] , [place] tel: [phone] [place] Pulmonary nodule Lamb Mariya. [address] [place], [place], [address]. tel:[phone] [facility], [address], [place], [place], [address] , [place] tel: [phone] [place] Encounter for Medicare annual wellness examEssential (primary) hypertensionAtheros clerosis of aortaParkinson's diseaseMajor depressive disorder, single episode, unspecifiedUlcerati ve colitis, unspecified, without complicationsScreen ing for malignant neoplasm of colonScreening for lipid disorders Mar-3 0-201 7 Adonis Garciah. [address] [place], [place], [address]. tel:[phone] Referring Provider: Mariya Lamb, [address] [place], [address] . tel:[phone] [facility], [address], [place], [place], [address] , [place] tel: [phone] [place] Pulmonary nodule 6 Adonis Garciah. [address] [place], [place], [address]. tel:[phone] [facility], [address], [place], [place], [address] , [place] tel: [phone] [place] Essential (primary) hypertensionParkins on's diseaseAtherosclero sis of aortaUlcerative colitis, unspecified, without complicationsDepres juan, unspecified depression type 6 Lamb Mariya. [address] [place], [place], [address]. tel:[phone] Referring Provider: [place], [address] . tel:[phone] [facility], [address], [place], [place], [address] , [place] tel: [phone] [place] Essential (primary) hypertensionAtheros clerosis of aortaParkinson's diseaseOther depressive episodesUlcerative colitis, unspecified, without complications 6 Lambjhon Garciah. [address] [place], [place], [address]. tel:[phone] Referring Provider: [place], [address] . tel:[phone] [facility], [address], [place], [place], [address] , [place] tel: [phone] [place] Abnormal CT scan, chest 6 Adonis Garciah. [address] [place], [place], [address]. tel:[phone] [facility], [address], [place], [place], [address] , [place] tel: [phone] [place] Other half-way (current) drug therapy 8 6 Adonis Meraz. [address] [place], [place], [address]. tel:[phone] Referring Provider: [place], [address] . tel:[phone] [facility], [address], [place], [place], [address] , [place] tel: [phone] [place] Encounter for Medicare annual wellness examEssential (primary) hypertensionParkins on's diseaseUlcerative colitis, unspecified, without complicationsAthero sclerosis of aortaOther depressive episodesOther specified disorders of bone density and structure, unspecified siteTinea pedis of both feet 6 Adonis Garciah. [address] [place], [place], [address]. tel:[phone] Referring Provider: [place], [address] . tel:[phone] [facility], [address], [place], [place], [address] , [place] tel: [phone] [place] Thyroid nodule Jul- 0-201 5 Adonis Garciah. [address] [place], [place], [address]. tel:[phone] [facility], [address], [place], [place], [address] , [place] tel: [phone] [place] Thyroid nodule Jul-0 7-201 5 Lamb Mariya. [address] [place], [place], [address]. tel:[phone] Referring Provider: [place], [address] . tel:[phone] [facility], [address], [place], [place], [address] , [place] tel: [phone] [place] Thyroid noduleMass 3201 5 [facility] Mariya. [address] [place], [place], [address]. tel:[phone] [facility], [address], [place], [place], [address] , [place] tel: [phone] [place] Essential (primary) hypertensionParkins on's diseaseUlcerative colitis, unspecified, without complicationsAthero sclerosis of aortaOther depressive episodesCat scratchScratched by cat, initial encounterEncounter for immunization 5 [facility] Mariya. [address] [place], [place], [address]. tel:[phone] Referring Provider: Mariya Lamb, [place], [address] . tel:[phone] [facility], [address], [place], [place], [address] , [place] tel: [phone] [place] Unspecified essential hypertensionAtheros clerosis of aortaUnspecified hypothyroidismDepre ssive disorder, not elsewhere classifiedParalysis agitansOther ulcerative colitis 7 5 Lamb Mariya. [address] [place], [place], [address]. tel:[phone] Referring Provider: Mariya Lamb, [place], [address] . tel:[phone] [facility], [address], [place], [place], [address] , [place] tel: [phone] [place] Sciatica Nov-2 8-201 5 Lamb Mariya. [address] [place], [place], [address]. tel:[phone] Referring Provider: [place], [address] . tel:[phone] [facility], [address], [place], [place], [address] , tel: [phone] [place] Medicare annual wellness visit, subsequentUnspecifi ed essential hypertensionUnspeci fied hypothyroidismParal ysis agitansDepressive disorder, not elsewhere classifiedOther ulcerative colitisAtherosclero sis of aortaDisorder of bone and cartilage, unspecified 5 Adonis Garciah. [address] [place], [place], [address]. tel:[phone] Referring Provider: Mariya Lamb, [address] [place], [address] . tel:[phone] [facility], [address], [place], [place], [address] , tel: [phone] [place] Unspecified essential hypertensionUnspeci fied hypothyroidismParal ysis agitansOther ulcerative colitis 4 Lamb Mariya. [address] [place], [place], [address]. tel:[phone] Referring Provider: Mariya Lamb, [address] [place], [address] . tel:[phone] [facility] [address], [place], [place], [address] , tel: [phone] [place] HTNHypothyroidismPa rkinson's DiseaseDepressionUl cerative colitis, unspecified 4 [facility] Mariya. [address] [place], [place], [address]. tel:[phone] Referring Provider: Mariya Lamb, [address] [place], [address] . tel:[phone] [facility], [address], [place], [place], [address] , tel: [phone] [place] History of fall/At Risk For FallingScreening for unspecified conditionRoutine Medical ExamHTNHypothyroidi smAtherosclerosis, AortaDisorder of bone and cartilage, unspecifiedDepressi onParkinson's DiseaseInfluenza VaccineUlcerative colitis, unspecified 4 Lamb Mariya. [address] [place], [place], [address]. tel:[phone] Referring Provider: Mariya Lamb, [address] [place], [address] . tel:[phone] [facility], [address], [place], [place], [address] , [place] tel: [phone] [place] No Information 3 Lamb Mariya. [address] [place], [place], [address]. tel:[phone] [facility], [address], [place], [place], [address] , [place] tel: [phone] [place] Routine general medical examination at a health care facilityOsteopeniaP arkinson diseaseUlcerative colitisLong-term (current) use of other medicationsDepressi ve disorder, not elsewhere classified 2 Lambjhon Garciah. [address] [place], [place], [address]. tel:[phone] Referring Provider: Mariya Lamb, [address] [place], [address] . tel:[phone] [facility], [address], [place], [place], [address] , [place] tel: [phone] [place] No Information 2 Adonis Garciah. [address] [place], [place], [address]. tel:[phone] [facility], [address], [place], [place], [address] , [place] tel: [phone] [place] Unspecified essential hypertensionUnspeci fied acquired hypothyroidismParki nson's DiseaseUlcerative colitis, unspecifiedDepressi ve disorder, not elsewhere classifiedBONE & CARTILAGE DIS NOSGENERAL OSTEOARTHROSISUlcer ative colitis, unspecifiedAORTIC ATHEROSCLEROSIS 1 Lambjoselito Garciah. [address] [place], [place], [address]. tel:[phone] Referring Provider: Mariya Lamb, [address] [place], [address] . tel:[phone] [facility] [employer], [address], [place], [place], [address] , [place] tel: [phone] [place] No Information 1 Lamb Mariya. [address] [place], [place], [address]. tel:[phone] [facility] [employer], [address], [place], [place], [address] , [place] tel: [phone] [place] HYPOTHYROIDISM NOSPARALYSIS AGITANSDEPRESSIVE DISORDER NECMITRAL VALVE DISORDER 1 Lamb Mariya. [address] [place], [place], [address]. tel:[phone] [employer], [address], [place], [place], [address] , [place] tel: [phone] [place] DISC DEGENERATION NOS 1 [facility]. [address] [place] [address], [place], [address], [place]. [employer], [address], [place], [place], [address] , [place] tel: [phone] [place] GENERAL OSTEOARTHROSISBONE & CARTILAGE DIS NOSHYPERTENSION NOSAORTIC ATHEROSCLEROSIS 1 Lamb Mariya. [address] [place], [place], [address]. tel:[phone] [facility], [address], [place], [place], [address] , [place] tel: [phone] [place] ULCERATVE COLITIS UNSPCF 1 Ivan Bucio. [address] [place], [place], [address], [place]. tel:[phone] [facility], [address], [place], [place], [address] , [place] tel: [phone] [place] No Information 1 Lamb Mariya. [address] [place], [place], [address]. tel:[phone] [facility], [address], [place], [place], [address] , [place] tel: [phone] [place] No Information 5 Adonis Meraz. [address] [place], [place], [address]. tel:[phone] [facility], [address], [place], [place], [address] , tel: [phone] [place] ROUTINE MEDICAL EXAM 2 Adonis Meraz. [address] [place], [place], [address]. tel:[phone] Family History Family Member Type Diagnosis Age At Onset Mother Problem (finding) Irritable bowel disease Mother Problem (finding) hypertension Father Problem (finding) Cancer Mother Problem (finding) Hearing impairment Immunizations Vaccine Date Status Comments Fluzone Quad , preservative free, split virus, 0.5mL dosage administered Source: New Immuniza tion Record Influenza, injectable, quadrivalent, preservative free, 3 yrs or older administered Source: New Immuniz ation Record Tdap administered Source: New Imm unization Record Pneumococcal conjugate PCV 13 administere d Source: New Immunization Record FLU 3 yrs and older administered Note: ND C# 72896-614-41 ; Source: New Immunization Record flu (split) (3 yrs or older) administered Source: New Immunization Record Zoster administered Source: New Imm unization Record flu (split) (3 yrs or older) administered Source: New Immunization Record 27147 - Influenza administered Source: So urce Unspecified INFLUENZA A (H1N1 IMMUNICATI ON ADMIN administered Source: Source Unspe cified INFLUENZA A (H1N1) VACCINE, ANY ROUTE OF ADMIN administered Source: Source Unspe cified 47330 - Influenza administered Source: So urce Unspecified 86989 - Pneumococcal_PPV23 administered S ource: Source Unspecified Payers Payer name Insurance type Covered libertarian ID Authoriza tion(s) [place] [id number] [place] [id number] [place] [id number] [place] [id number] [place] [id number] [facility] BL [id number] [place] [id number] [facility] [id number] Social History Type Description Quantity Date Captured Comments Alcohol Use Details No Caffeine Use Details No Tobacco Use Status No Information Smoking Status Never smoker Sex Female Vital Signs Date / Time: Height Weight BMI Pulse Rate Blood Pressure Temperature Respiratory Rate Body Surface Area Head Circumference Head Circ. Percentile Wt./Andrzej. Percentile BMI percentile Pulse Ox Inhaled Ox 8:46 AM 63.00 in 81.102 kg (178.80 lbs) 31.6 7 kg/m eter (2) 78 /min 148/90 mm[Hg] 9:06 AM 134/90 mm[Hg] Chief Complaint And Reason For Visit No Information Reason For Referral Reason For Referral No Information History Of Present Illness Encounter Date Complaint History Of Prese nt Illness No Information Functional Status Date Functional Assessmen t No Information Instructions Date Instruction Additional Infor mation No Information Assessments Type Assessment Date No Information Patient Care Teams Name Effective Dates (start - stop) Status Members No Information
--- OUTSIDE RECORDS SUMMARY | 2024-10-08 17:11 | XMS_ITS | Continuity of Care Document ---
Author Name Auto Generated, Auto Generated Organization [facility] Summary Purpose Consult/Referral Allergies, Adverse Reactions, Alerts No Known Allergies Medications No Known Medications Conditions/Problems No Known Problems Procedures No Known Procedures
--- OUTSIDE RECORDS SUMMARY | 2024-10-08 17:11 | XMS_ITS | Continuity of Care Document ---
Author Organization [facility] Address [address] [place] [address] Phone Care Team Providers Care Records Custodian Name Role Phone Senia Marrero Unavailable Unavailable Procedures Procedure Date Post-op Follow-up Visit Post-op Follow-up Visit Remove Cataract, Insert Lens,Comanaged N Eye Exam & Treatment IOLMaster-Professional Post-op Follow-up Visit Post-op Follow-up Visit Post-op Follow-up Visit Remove Cataract, Insert Lens Eye Exam & Treatment Optic Nerve Topography Advance Directives Directive Yes / No Effective Date File Name No Information Encounters Encounter Description Practice Location Reason(s) For Visit Diagnoses Date Provider Providers Copied on Encounter [facility], [address] [place] [address] [address], [place], [place], [address], tel:[phone] [facility] No Information 2-200 8 Elida Conn. [address], [place], [address], [place]. tel:[phone] [facility], [address] [place] [address] [address], [place], [place], [address], [place] tel:[phone] [facility] No Information 0-200 8 Pappas OD Cresencio. [address], [place], [address], [place]. tel:[phone] [facility], [address], [place], [place], [address], [place] tel:[phone] [facility] No Information 1 9-200 8 Elida Conn. [address], [place], [place], [facility], [place]. tel:[phone] Referring Provider: Deep Bach OD, [address] [facility] [place], [place], [address]. tel:[phone] [facility], [address], [place], [place], [address], [place] tel:[phone] [facility] No Information Jun-0 7-200 8 Elida Gfofn. [address], [place], [facility], [place]. tel:[phone] Referring Provider: Senia Lloyd, [address], [place], [facility]. tel:[phone] [facility], [address], [place], [place], [address], [place] tel:[phone] [facility] No Information Mar-0 3-200 7 Elida Cole [address], [place], [facility], [place]. tel:[phone] [facility], [address], [place], [place], [address], [place] tel:[phone] [facility] No Information Feb-0 6-200 7 Elida Conn. [address], [place], [facility], [place]. tel:[phone] Referring Provider: Natalie Villalba OD L, [address], [place], [address]. tel:[phone] [facility], [address], [place], [place], [address], [place] tel:[phone] [facility] No Information Michael-2 1-200 7 Pappas OD Cresencio. [address], [place], [facility], . tel:[phone] [facility], [address] [place] [address] [address], [place], [place], [address], tel:[phone] [facility] No Information Michael-2 0-200 7 Marrero Senia. [address] [facility] , [address], [place], [facility], . tel:[phone] Referring Provider: Natalie Villalba OD L, [address], [address]. tel:[phone] [facility], [address] [facility] [address], [place], [place], [address], tel:[phone] [facility] No Information Michael-0 1-200 7 Marrero Senia. [address] [facility] , [address], [place], [address], . tel:[phone] Referring Provider: Natalie Villalba OD L, [address] [place] [address], [address]. tel:[phone] Family History Family Member Type Diagnosis Age At Onset No Information Payers Payer name Insurance type Covered democrat ID Authoriza tion(s) No Information Social History Type Description Quantity Date Captured Comments Sex Female Smoking Status No Information Chief Complaint And Reason For Visit No [...]
--- NOTE | 2024-10-08 17:23 | ED_ITS ---
HPI - Headache General Chief Complaint: Headache Stated Complaint: headache, stiff neck Time Seen by Provider: 10/08/24 17:15 Focused HPI: Patient is an 84-year-old female who presents to the ER with severe headache and neck pain that started earlier today. Her daughter reports she had 4 teeth pulled approximately 2 weeks ago and was on amoxicillin 3 times a day. Patient reports she has never had a headache this bad before. She denies any recent fevers, shortness of breath, mastoid tenderness, sore throat. She also endorses significant jaw and mouth pain at the time of examination. GENERAL: Ill-appearing, well-nourished, and in no acute distress. HEAD: Normocephalic, atraumatic. PERRLA CHEST: Clear to auscultation. ?No respiratory distress. HEART: Regular rate and rhythm.? NEURO: ?Alert and oriented x3. Cranial Nerves intact. Patient screened in triage and initial orders placed.? ?Additional care and disposition to be based upon?diagnostic testing and treatment. Related Data Home Medications ?Medication ?Instructions ?Recorded ?Confirmed ?Last Taken ?Type losartan 50 mg tablet 50 mg PO DAILY 10/04/22 06/22/24 10/03/22 09:00 History metoprolol succinate 50 mg 50 mg PO DAILY 10/04/22 06/22/24 10/03/22 09:00 History tablet,extended release 24 hr vitamin B complex (B 1 tablet PO DAILY 10/04/22 06/22/24 10/03/22 09:00 History Complex-Vitamin B12 tablet) vitamin E 268 mg (400 unit) capsule 1 cap PO DAILY 10/04/22 06/22/24 10/03/22 09:00 History Allergies Allergy/AdvReac Type Severity Reaction Status Date / Time codeine Allergy Mild Hallucinati Verified 10/08/24 17:09 ng mesalamine Allergy Mild Nausea and Verified 10/08/24 17:09 Vomiting sulfasalazine Allergy Mild Nausea and Verified 10/08/24 17:09 Vomiting PMFSH Past Medical History Medical History (Updated 10/09/24 @ 10:29 by Kiki Joiner APRN) MCI (mild cognitive impairment) Benign essential tremor Social History Social History Smoking status: Never smoker Alcohol intake: never Substance use: never Substance use type: does not use Lack of Transportation: YES Lack of Food: Never True Current Housing: I Have Housing Concerned About Future Housing: No Difficulty Paying Gas/Electric Bills: No Difficulty Paying for Meds: No Currently Unemployed: No Education: High School Diploma/GED Difficulty w/ Childcare or Family Care: No Spiritual care concerns: No Course Vital Signs Vital signs: Vital Signs Temperature 36.6 C 10/08/24 17:09 Pulse Rate 108 H 10/08/24 17:09 Respiratory Rate 20 10/08/24 17:09 Blood Pressure 155/86 H 10/08/24 17:09 Pulse Oximetry 100 10/08/24 17:09 Oxygen Delivery Room Air 10/08/24 17:09 Temperature 36.6 C 10/08/24 17:09 Pulse Rate 108 H 10/08/24 17:09 Respiratory Rate 20 10/08/24 17:09 Blood Pressure 155/86 H 10/08/24 17:09 Pulse Oximetry 100 10/08/24 17:09 Oxygen Delivery Room Air 10/08/24 17:09 MDM - Headache Lab Data 10/08/24 20:01 10/08/24 20:01 Labs: Lab Results 10/08/24 Range/Units 20:01 WBC 11.9 H (4.5-10.0) K/mm3 RBC 4.44 (4.2-5.4) M/mm3 Hgb 13.8 (12.0-15.0) g/dL Hct 41.6 (37.0-47.0) % MCV 93.7 (80-100) fl MCH 31.1 (26-34) pg MCHC 33.2 (32-36) g/dl RDW 13.1 (11.5-14.5) % Plt Count 262 (150-375) k/mm3 MPV 10.5 H (7.4-10.4) fl Immature Gran % (Auto) 0.3 (0-0.5) % Neut % (Auto) 80.5 H (45.5-73.1) % Lymph % (Auto) 10.3 L (18.3-44.2) % [place] % (Auto) 7.7 (2.6-8.5) % Eos % (Auto) 0.7 (0-4.4) % Baso % (Auto) 0.5 (0.2-1.2) % Lymph # (Auto) 1.22 (0.9-3.2) K/mm3 [place] # (Auto) 0.9 H (0.1-0.6) K/mm3 Eos # (Auto) 0.1 (0-0.3) K/mm3 Baso # (Auto) 0.1 (0.0-0.1) K/mm3 Abs Immat Gran (auto) 0.03 (0.00-0.031) K/mm3 Absolute Neuts (auto) 9.6 H (1.3-6.7) K/mm3 Absolute Nucleated RBC 0.000 (0.0-0.012) K/mm3 Nucleated RBC % 0.0 (0.0-0.2) % PT 14.8 H (11.1-14.7) Seconds INR 1.1 APTT 27.1 (22.3-36.8) Seconds Sodium 140 (137-145) mmol/L Potassium 4.0 (3.4-5.0) mmol/L Chloride 103 (98-107) mmol/L Carbon Dioxide 24 (22-30) mmol/L Anion Gap 13 H (4-12) mmol/L BUN 19 H (7-17) mg/dL Creatinine 0.60 L (0.7-1.0) mg/dL Estim Creat Clear Calc 61 ml/min Estimated GFR > 60 (59 - ) Glucose 109 (65-110) mg/dL Lactic Acid 0.9 (0.7-2.0) mmol/L Calcium 9.6 (8.4-10.2) mg/dL Total Bilirubin 1.9 H (0.2-1.3) mg/dL AST 26 (14-36) U/L ALT 20 (6-35) U/L Alkaline Phosphatase 105 (38-126) U/L Troponin I < 0.012 (0.000-0.034) ng/mL C-Reactive Protein 3.0 H (<1.0) mg/dL Total Protein 9.0 H (6.3-8.2) g/dL Albumin 4.5 (3.5-5.1) g/dL Discharge Plan Discharge Clinical Impression: Headache, Acute neck pain Patient Disposition: Elopement After Seen by Prov Condition: Guarded Prognosis Patient Language: Korean Prescriptions: No Action primidone 50 mg tablet See Rx Instructions .ROUTE .COMPLEX Qty: 90 2RF Rx Instructions: 1/2 tablet at bedtime for 1 week and then 2 tablets at bedtime for 1 week then 2 and half tablets at bedtime for 1 week then 3 tablets at bedtime to continue alprazolam 0.25 mg tablet 0.25 mg PO BID Qty: 60 5RF losartan 50 mg tablet 50 mg PO DAILY metoprolol succinate 50 mg tablet extended release 24 hr 50 mg PO DAILY vitamin B complex [B Complex-Vitamin B12] Tablet 1 tablet PO DAILY vitamin E 268 mg (400 unit) capsule 1 cap PO DAILY docusate sodium 100 mg Capsule 100 mg PO Q12H PRN (Reason: Constipation- 1st line) Qty: 60 0RF Follow-up/Referrals: FARA,KENNY WHEATLEY [Primary Care Provider] -
--- NOTE | 2024-10-08 17:26 | ECG_ITS ---
Test Date: 2024-10-08 19:55:03 Measurements Intervals [place] Rate: 95 P: 36 WI: 223 QRS: -40 QRSD: 150 T: 71 QT: 384 QTc: 484 Interpretive Statements SINUS RHYTHM WITH FIRST DEGREE AV BLOCK POSSIBLE LEFT ATRIAL ENLARGEMENT [-0.1mV P-WAVE IN V1/V2] LEFT AXIS DEVIATION [QRS AXIS < -30] LEFT BUNDLE BRANCH BLOCK [120+ ms QRS DURATION, 80+ ms Q/S IN V1/V2, 85+ ms R IN I/aVL/V5/V6] ABNORMAL ECG Compared to ECG 03/08/2024 08:44:31 HEART RATE INCREASED Electronically Signed On 10-09-2024 15:40:11 CATERPILLAR TRACTOR OPERATOR by Barrera Braga M.D.
[2024-10-08 20:08] LABS: Basophils Absolute Auto 0.1 K/mm3 (0.0-0.1); Basophils Percent Auto 0.5 % (0.2-1.2); Eosinophils Absolute Auto 0.1 K/mm3 (0-0.3); Eosinophils Percent Auto 0.7 % (0-4.4); Hematocrit 41.6 % (37.0-47.0); Hemoglobin 13.8 g/dL (12.0-15.0); Immature Granulocyte Absolute 0.03 K/mm3 (0.00-0.031); Immature Granulocyte Percent A 0.3 % (0-0.5); Lymphocytes Absolute Auto 1.22 K/mm3 (0.9-3.2); Lymphocytes Percent Auto 10.3 % (18.3-44.2); Mean Corpuscular HGB Conc 33.2 g/dl (32-36); Mean Corpuscular Hemoglobin 31.1 pg (26-34); Mean Corpuscular Volume 93.7 fl (80-100); Mean Platelet Volume 10.5 fl (7.4-10.4); Monocytes Absolute Auto 0.9 K/mm3 (0.1-0.6); Monocytes Percent Auto 7.7 % (2.6-8.5); Neutrophils Absolute Auto 9.6 K/mm3 (1.3-6.7); Neutrophils Percent Auto 80.5 % (45.5-73.1); Platelet Count Result 262 k/mm3 (150-375); Red Blood Count 4.44 M/mm3 (4.2-5.4); Red Cell Distribution Width 13.1 % (11.5-14.5); White Blood Count 11.9 K/mm3 (4.5-10.0)
[2024-10-08 20:19] LABS: Lactic Acid Reflex 0.9 mmol/L (0.7-2.0)
[2024-10-08 20:23] LABS: Alanine Aminotransferase 20 U/L (6-35); Albumin Level 4.5 g/dL (3.5-5.1); Alkaline Phosphatase 105 U/L (38-126); Anion Gap 13 mmol/L (4-12); Aspartate Amino Transferase 26 U/L (14-36); Bilirubin,Total 1.9 mg/dL (0.2-1.3); Blood Urea Nitrogen 19 mg/dL (7-17); Calcium 9.6 mg/dL (8.4-10.2); Carbon Dioxide 24 mmol/L (22-30); Chloride 103 mmol/L (98-107); Estimated CRCL calculation 61 ml/min; Estimated Glomerular Filt Rate > 60; Glucose 109 mg/dL (65-110); Sodium 140 mmol/L (137-145)
[2024-10-08 20:24] LABS: INR 1.1; Partial Thromboplastin Time 27.1 Seconds (22.3-36.8); Prothrombin Time 14.8 Seconds (11.1-14.7)
[2024-10-08 20:31] LABS: Troponin I < 0.012 ng/mL (0.000-0.034)
--- NOTE | 2024-10-08 22:06 | PC.NURSE ---
Pt to triage desk w granddaughter and reports she would like to leave. Pt reports she will follow up w pcp or return to ED if sx persist. Pt taken home via granddaughter. Pt aox4 on assessment.
--- OUTSIDE RECORDS SUMMARY | 2024-10-08 22:18 | XMS_ITS | Continuity of Care Document ---
Author Organization [facility] Address [address] [place] [address] Phone Care Team Providers Care Certified Alcohol And Drug Counselor Name Role Phone Senia Marrero Unavailable Unavailable [...] Diagnoses Date Provider Providers Copied on Encounter [facility], [address] [place] [address] [address], [place], [place], [id number], tel:[phone] SEC [facility] No Information 2-200 8 Elida Conn. [address] , [address], [place], [address], [place]. tel:[phone] [facility], [address] [place] [address] [address], [place], [place], [id number], [place] tel:[phone] SEC [facility] No Information 0-200 8 Pappas OD Cresencio. [address] , [address], [place], [address], [place]. tel:[phone] [facility] [place] [place], [address], [place], [place], [id number], [place] tel:[phone] [facility] No Information 1 9-200 8 Elida Conn. [address], [place], [place], [facility], [place]. tel:[phone] Referring Provider: Deep Bach OD, [address] [facility] [place], [place], [address]. tel:[phone] [facility], [address], [place], [place], [id number], [place] tel:[phone] SEC [facility] No Information Jun-0 7-200 8 Elida Goffn. [address] , [address], [place], [place], [facility], [place]. tel:[phone] Referring Provider: Senia Lloyd, [address], [place], [place], [facility]. tel:[phone] [facility], [address], [place], [place], [id number], [place] tel:[phone] SEC [facility] No Information Mar-0 3-200 7 lEida Cole [address] , [address], [place], [place], [facility], [place]. tel:[phone] [facility], [address], [place], [place], [id number], [place] tel:[phone] SEC [facility] No Information Feb-0 6-200 7 Elida Conn. [address] , [address], [place], [place], [facility], [place]. tel:[phone] Referring Provider: Natalie Villalba OD L, [address], [place], [address]. tel:[phone] [facility], [address], [place], [place], [id number], [place] tel:[phone] [facility] No Information Michael-2 1-200 7 Pappas OD Cresencio. [address] , [address], [place], [place], [facility], . tel:[phone] [facility], [address] [place] [address] [address], [place], [place], [id number], tel:[phone] [facility] No Information Michael-2 0-200 7 Marrero Senia. [address] [facility] , [address], [place], [place], [facility], . tel:[phone] Referring Provider: Natalie Villalba OD L, [address], [place], [address]. tel:[phone] [facility], [address] [facility] [address], [place], [place], [id number], tel:[phone] [facility] No Information Michael-0 1-200 7 Marrero Senia. [address] [facility] , [address], [place], [address], . tel:[phone] Referring Provider: Natalie Villalba OD L, [address] [place] [address], [address]. tel:[phone] Family History Family Member Type Diagnosis Age [...]
--- OUTSIDE RECORDS SUMMARY | 2024-10-08 22:18 | XMS_ITS | Encounter Summary ---
Author Organization [facility] Address [facility] [place] [address] Care Team Providers Care Social Work Program Coordinator Name Role Phone Miranda Cotton Primary Care Provider [phone] Encounter Details Date Type Department Care Team (Latest Contact Info) Description 06/09/2018 Abstract [facility] , Eboni Edwards MD Social History Tobacco Use Types Packs/Day Years Used Date Smoking Tobacco: Never Assessed Comments Unknown Sex and Gender Information Value Date Recorded Sex Assigned at Not on file Legal Sex Female 4:46 PM CDT Gender Identity Not on file Sexual Orientation Not on file documented as of this encounter Plan of Treatment Upcoming Encounters Date Type Department Care Team (Late st Contact Info) Description 11/12/2024 10:45 AM CDT Office Visit [facility] [phone] Kelly Pak MD [facility] [address] [facility] [place] [address] documented as of this encounter Visit Diagnoses Not on filedocumented in this encounter Care Teams Social Work Program Coordinator Relationship Specialty Start Date End Date Miranda Cotton FNP [address] [place] [address] PCP - General Nurse Practitioner Family 08/25/18 documented as of this encounter
--- OUTSIDE RECORDS SUMMARY | 2024-10-08 22:18 | XMS_ITS | Encounter Summary ---
Author Organization [facility] Address [facility] [place] [address] Care Team Providers Care Tree Deadener Name Role Phone Miranda Cotton Primary Care Provider [phone] Encounter Details Date Type Department Care Team (Late Contact Info) Description 02/24/2023 Therapy Plan [facility] [address] [place], [place] [id number] Anyi Copeland, [place] [address] Social History Tobacco Use Types Packs/Day Years Used Date Smoking Tobacco: Never Smokeless Tobacco: Never Alcohol Use Standard Drinks/Week Comments No 0 (1 standard drink = 0.6 oz pur e alcohol) AUDIT-C Answer Date Recorded Frequency of Alcohol Consumption Never 08/25/2018 Average Number of Drinks Not on file 019 Frequency of Binge Drinking Not on file 08/05 PHQ-2 Answer Date Recorded PHQ-2 Score - If the patient scores above 3, please move on to questions 3-9 1 03/21/2022 Comments No Sex and Gender Information Value Date Recorded Sex Assigned at Not on file Legal Sex Female 4:46 PM CDT Gender Identity Not on file Sexual Orientation Not on file documented as of this encounter Plan of Treatment Upcoming Encounters Date Type Department Care Team (Late Contact Info) Description 11/12/2024 10:45 AM CDT Office Visit [facility] [address] Kelly Pak MD [facility] [address] [place] [address] documented as of this encounter Visit Diagnoses Not on filedocumented in this encounter Additional Health Concerns Assessment Noted Time PHQ-9 Depression Total Score: 5 03/21/20 22 2:58 PM CDT documented as of this encounter Care Teams Tree Deadener Relationship Specialty Start Date End Date Miranda Cotton FNP [address] [place] [address] PCP - General Nurse Practitioner Family 08/25/18 documented as of this encounter
--- OUTSIDE RECORDS SUMMARY | 2024-10-08 22:18 | XMS_ITS | Clinical Summary ---
Author Organization [facility] Address [address] [place] [address] Care Team Providers Care Pipe Bowl Paint Trimmer Name Role Phone Miranda Cotton Primary Care Provider [phone] Allergies Active Allergy Reactions Criticality Noted Date Comments Sulfasalazine Unknown 08/25/2018 Codeine Anxiety Low 08/25/2018 Medications docusate sodium (COLACE) 100 MG capsuleIndications :Constipation TAKE 1 CAPSULE BY MOUTH EVERY 12 HOURS NEEDED FOR CONSTIPATION -1ST LINE 10/16/19 23 Active primidone (MYSOLINE) 50 MG tabletIndications: Tremor Take 1 tablet (50 mg total) by mouth daily. Indications: Involuntary Quivering 11/23/19 23 Active aspirin EC (ECOTRIN) 81 MG tabletIndications: Platelet Aggregation Prophylaxis Take 1 tablet (81 mg total) by mouth daily. Indications: Treatment to Reduce Platelet Aggregation Active Cyanocobalamin (B-12) 5000 MCG CapIndications:Vit osuna and/or Mineral Deficiency Take 0.5 capsules by mouth daily. Indications: Vitamin and/or Mineral Deficiency Active COMPRESSION STOCKINGS, DME,Indications:Bi lateral lower extremity edema Apply 1 Package topically daily. Knee High, Medium Compression 10-15mmhg, Diagnosis: Bilateral lower extremity edema 2 Package 1 01/11/20 23 Active carbidopa-levodopa CR (SINEMET CR) 25-100 MG tabletIndications: Parkinson's Disease Take 1 tablet by mouth 2 (two) times daily. Indications: Parkinson's Disease 07/07/20 23 Active fluticasone propionate (FLONASE) 50 MCG/ACT nasal sprayIndications:N trini Congestion with Rhinorrhea (Inactive) 2 sprays by Each Nostril route daily. 15.8 mL 11 11/14/19 24 Active citalopram (CELEXA) 20 MG tabletIndications: Mood Changes Take 1 tablet (20 mg total) by mouth daily. 90 tablet 3 11/14/19 24 Active Coenzyme Q10 (CO Q 10) 100 MG CapIndications:sup plement Take 1 capsule by mouth daily. 90 capsule 3 11/14/19 24 Active furosemide (LASIX) 20 MG tabletIndications: Diuretic Therapy Take 1 tablet (20 mg total) by mouth daily. CALL TO MAKE AN APPOINTMENT. 90 tablet 3 11/14/19 24 Active losartan (COZAAR) 50 MG tabletIndications: Hypertension Take 1 tablet (50 mg total) by mouth daily. 90 tablet 3 11/14/19 24 Active EQ MAGNESIUM CITRATE ORIndications:Steff min and/or Mineral Deficiency Take 250 mg by mouth daily. Indications: Vitamin and/or Mineral Deficiency 11/17/19 24 Active Multiple Vitamins-Minerals (ICAPS LUTEIN & ZEAXANTH, MVI, OR)Indications:Vit osuna and/or Mineral Deficiency Take 1 tablet by mouth daily. Indications: Vitamin and/or Mineral Deficiency 11/17/19 24 Active folic acid (FOLVITE) 1 MG tabletIndications: Vitamin and/or Mineral Deficiency Take 1 tablet (1 mg total) by mouth daily. Indications: Vitamin and/or Mineral Deficiency 11/17/19 24 Active polyethylene glycol (MIRALAX) 17 GM/SCOOP powderIndications: Constipation Take 17 g by mouth daily as needed (constipation). 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 1 Device 04/02/20 24 Active Vitamin E (VITAMIN E/D-ALPHA NATURAL) 268 MG (400 UNIT) CapIndications:Non -healing skin lesion Take 1 capsule by mouth daily. 100 capsule 3 05/21/20 24 Active vitamin D3 (CHOLECALCIFEROL) 25 mcg tabletIndications: Vitamin and/or Mineral Deficiency Take 2 tablets (50 mcg total) by mouth daily. 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 01/20/2020 Anxiety 01/20/2020 Vitamin D deficiency, unspecified 01/20/2020 Swelling of lower leg 01/20/2020 Abnormal mammogram of both breasts 05/29/2018 Arthritis 05/05/2018 Benign hypertension 05/05/2018 Constipation, chronic 05/05/2018 Fatigue 05/05/2018 Hemorrhoid 05/05/2018 Parkinsonism ([facility]) 05/05/2018 Thyroid nodule 05/05/2018 Resolved Problems Problem Noted Date Diagnosed Date Resolved Date Essential hypertension 01/20/202003/21 Hearing loss, bilateral 05/05/201803/04 Low vitamin D level 05/05/2018 11/14/19 Parkinsonian tremor ([facility]) 05/05/2018 02/02/2021 Encounters Date Type Department Care Team Description 10/08/2024 Telephone [facility] [address] [address] Miranda Cotton FNP Advice from Last 3 Months Immunizations Name Administration Dates Next Due Fluzone 6 Months+ Quad (0.5 mL Prefilled Syringe) 07/29/2017,05/08/2015,08/12/2013 Fluzone High Dose - >Age 65 (Prefilled Syringe) 10/05/2019,05/05/2018 Influenza (Generic) 08/01/2017,05/25/2014,2011 Influenza 3 yrs + with Prese rvative (Fluzone) 05/25/2014,07/07/2012 Influenza Adult (Generic) 05/05/2018,08/01/2017 PFIZER COVID-19 (VALDIVIA CAP), MRNA, LNP-S, PF, 30 MCG/0.3 ML ARGENIS-SUCROSE, IM 03/21/2022 PFIZER COVID-19 (ORIGINAL FO RMULATION, PURPLE CAP) mRNA, LNP-S, PF, 30 MCG/0.3 ML DOSE 12/01/2020,11/27/2020 Pneumococcal (Prevnar 20) 11/14/2023 Tdap (Adacel) 08/25/2014 Tdap (Boostrix) 09/18/2015 Tdap (Generic) 12/12/2018,09/18/2015,05/08/2015 Zoster (Zostavax) [address]60 Unt/0.65Ml 07/07/2012 Zoster Unspecified Formulation 08/25/2011 Family History Medical History Relation Comments Cancer Brother colon and lung Cancer Father lung Heart Father Heart Maternal Grandfather Cancer Mother skin cancer Hypertension Mother Relation Status Comments Brother (Age 59) Father (Age 75) Maternal Grandfather (Age 90) Maternal Grandmother (Age 31) Mother Alive Social History Tobacco Use Types Packs/Day Years Used Date Smoking Tobacco: Never Smokeless Tobacco: Never Tobacco Cessation:Counseling Given: Not Answered Alcohol Use Standard Drinks/Week Comments No 0 (1 standard drink = 0.6 oz pur e alcohol) OASIS D0700: Social Isolation Answer Da te Recorded Frequency of experiencing loneliness or isolatio n Never 12/17/2023 OASIS A1250: Transportation Answer Date Recorded Lack of Transportation (Medical) No 12/17/2023 Lack of Transportation (Non-Medical) No 12/17/2023 Patient Unable or Declines to Respond No 12/17/2023 OASIS B1300: Health Literacy Answer Isaac e Recorded Frequency of needing help to read materials from doctor or pharmacy Sometimes 12/17/2023 AUDIT-C Answer Date Recorded Frequency of Alcohol Consumption Never 08/25/2018 Average Number of Drinks Not on file 019 Frequency of Binge Drinking Not on file 08/05 PHQ-2 Answer Date Recorded Patient Health Questionnaire-2 Score 0 11/14/2023 Comments No Sex and Gender Information Value Date Recorded Sex Assigned at Not on file Legal Sex Female 4:46 PM CDT Gender Identity Not on file Sexual Orientation Not on file Last Filed Vital Signs Vital Sign Reading Time Taken Comments Blood Pressure 142/80 04/30/2024 11:14 AM CDT Pulse 70 04/30/2024 11:14 AM CDT Temperature 36.4 C (97.5 F) 04/01/2024 9:25 AM CDT Respiratory Rate 18 04/01/2024 9:25 AM CDT Oxygen Saturation 92% 04/30/2024 11: 14 AM CDT Inhaled Oxygen Concentration - - Weight 84.7 kg (186 lb 12.8 oz) 024 11:14 AM CDT Height 167.6 cm (5' 6 ) 04/30/2024 11:1 4 AM CDT Body Mass Index 30.15 04/30/2024 11:14 AM CDT Plan of Treatment Upcoming Encounters Date Type Department Care Team (Late st Contact Info) Description 11/12/2024 10:45 AM CDT Office Visit [facility] [address] Kelly Pak MD [facility] [address] [facility] [place] [address] Health Maintenance Due Date Last Done Comments Annual Medicare Wellness Visit 2004 COVID-19 Vaccine ( season) 2024 03/21/2022, 11/07/2021, 12/01/2020, Additional history exists Influenza Adult (#1) 2024 10/05/2019, 05/05/2018, 05/05/2018, Additional history exists PHQ-2 (Physician [place]) 08/04/2024 11/14/2023 RSV Immunization or 60+ Years (1 - 1-dose 75+ series) 11/13/2024 Postponed from 2014 (Patient Refused) Zoster Vaccines (2 of 3) 11/13/2024 07/07/2012, 08/05 Postponed from 09/01/2012 (Going to Outside Clinic) DTaP, Tdap and Td Vaccines (6 - Td or Tdap) 12/12/2028 12/12/2018, 09/18/2015, 09/18/2015, Additional history exists Pneumococcal Vaccine: 65+ Years Completed 11/14/2023 Meningococcal B Vaccine Aged Out No l onger eligible based on patient's age to complete this topic Meningococcal Vaccine Aged Out No tylor lion eligible based on patient's age to complete this topic RSV Immunizations Under 20 Months Aged Out No longer eligible based on patient's age to complete this topic Insurance [facility]IC[facility] Advance Directives * Full Code (Latest Code Status on File) Date Activated Date Inactivated Comments 11/17/2023 3:45 PM Care Teams Pipe Bowl Paint Trimmer Relationship Specialty Start Date End Date Miranda Cotton FNP [address] [place] [address] PCP - General Nurse Practitioner Family 08/25/18
--- OUTSIDE RECORDS SUMMARY | 2024-10-08 22:18 | XMS_ITS | Encounter Summary ---
Author Organization [facility] Address [facility] [place] [address] Care Team Providers Care Harbor Department Manager Name Role Phone Miranda Cotton Primary Care Provider [phone] Encounter Details Date Type Department Care Team (Late Contact Info) Description 11/14/2023 Abstract [facility] [address] Ra Vang MA Social History Tobacco Use Types Packs/Day Years Used Date Smoking Tobacco: Never Smokeless Tobacco: Never Alcohol Use Standard Drinks/Week Comments No 0 (1 standard drink = 0.6 oz pur e alcohol) OASIS D0700: Social Isolation Answer Da te Recorded Frequency of experiencing loneliness or isolatio n Never 11/17/2023 OASIS A1250: Transportation Answer Date Recorded Lack of Transportation (Medical) No 11/17/2023 Lack of Transportation (Non-Medical) No 11/17/2023 Patient Unable or Declines to Respond No 11/17/2023 OASIS B1300: Health Literacy Answer Isaac e Recorded Frequency of needing help to read materials from doctor or pharmacy Often 11/17/2023 AUDIT-C Answer Date Recorded Frequency of Alcohol [...] Description 11/12/2024 10:45 AM CDT Office Visit [facility] [address] Kelly Pak MD [address] [facility] [address] [facility] [place] [address] documented as of this encounter Procedures Procedure Name Priority Date/Time Associated Diagnosis Comments CBC (OUTSIDE LAB) Routine 11/13/2023 COMPREHENSIVE METABOLIC PANEL Routine 11/13/2023 documented in this encounter Results * COMPREHENSIVE METABOLIC PANEL (11/13/2023) SODIUM S/P/B 137 POTASSIUM S/P/B 4.0 CO2 30 CHLORIDE S/P/B 98 GLUCOSE 76 mg/dL CALCIUM S/P/B 9.0 BUN 18 CREATININE S/P/B 0.85 0.5 - 1.0 EGFR NON-AFR. AMER. 68 <=90 ALKALINE PHOSPHATASE S/P/B 79 ALT 13 AST 17 BILIRUBIN TOTAL S/P/B 0.8 ALBUMIN S/P/B 3.8 3.5 - 5.0 TOTAL PROTEIN S/P/B 7.0 GLOBULIN 3.2 11/13/2023 us Default History Genericprovider LABORATORY Final Result * CBC (OUTSIDE LAB) (11/13/2023) WBC 5.9 HGB 11.9 HCT 35.8 PLT 218 11/13/2023 us Default History Genericprovider LAB-OUTSIDE/ABST RACTED Final Result documented in this encounter Visit Diagnoses Not on filedocumented in this encounter Additional Health Concerns Assessment Noted Time PHQ-9 Depression Total Score: 5 03/21/20 22 2:58 PM CDT documented as of this encounter Care Teams Harbor Department Manager Relationship Specialty Start Date End Date Miranda Cotton FNP [address] [place] [address] PCP - General Nurse Practitioner Family 08/25/18 documented as of this encounter
--- OUTSIDE RECORDS SUMMARY | 2024-10-08 22:18 | XMS_ITS | Continuity of Care Document ---
Author Organization [facility] Address [address] [place] [address] Phone Care Team Providers Care Architecture Analyst Name Role Phone Mariya Lamb MD Unavailable [...] Final Ketones (U) Negative NEGATIVE Final Specific [place] 1.015 1.001 - 1.035 Final Blood (U) [...] % 16.0-46.0 Final Performed by:[facility] ([facility]) [place] # 18 09:30:58 0.54 K/uL 0.20-1.10 Final Performed by:[facility] ([facility]) [place] % 18 09:30:58 10.9 % 0.0-12.0 Final [...] Diagnoses Date Provider Providers Copied on Encounter [facility], [address], [place], [place], [address] , [place] tel: [phone] [place] Encounter for Medicare annual wellness examEssential (primary) hypertensionAtheros clerosis of aortaParkinson's diseaseUlcerative colitis, unspecified, without complicationsMajor depressive disorder, single episode, unspecified 8 Adonis Meraz. [address] [place], [place], [address]. tel:[phone] Referring Provider: Mariya Lamb, [address] [place], [address] . tel:[phone] [facility], [address], [place], [place], [address] , [place] tel: [phone] [place] No Information 8 Adonis Meraz. [address] [place], [place], [address]. tel:[phone] [facility], [address], [place], [place], [address] , tel: [phone] Alil[place] Essential (primary) hypertensionParkins on's diseaseAtherosclero sis of aortaMajor depressive disorder, single episode, unspecified Lamb Mariya. [address] [place], [place], [address]. tel:[phone] Referring Provider: Mariya Lamb, [address] [place], [address] . tel:[phone] [facility], [address], [place], [place], [address] , [place] tel: [phone] Allison No Information Lamb Mariya. [address] [place], [place], [address]. tel:[phone] [facility] [employer], [address], [place], [place], [address] , tel: [phone] Allison Essential (primary) hypertensionParkins on's diseaseUlcerative colitis, unspecified, without complicationsMajor depressive disorder, single episode, unspecified Lamb Mariya. [address] [place], [place], [address]. tel:[phone] Referring Provider: Mariya Lamb, [address] [place], [address] . tel:[phone] [facility], [address], [place], [place], [address] , [place] tel: [phone] Allison Pulmonary nodule Lamb Mariya. [address] [place], [place], [address]. tel:[phone] [facility], [address], [place], [place], [address] , [place] tel: [phone] Allison Encounter for Medicare annual wellness examEssential (primary) hypertensionAtheros clerosis of aortaParkinson's diseaseMajor depressive disorder, single episode, unspecifiedUlcerati ve colitis, unspecified, without complicationsScreen ing for malignant neoplasm of colonScreening for lipid disorders Mar-3 0-201 7 Adonis Garciah. [address] [place], [place], [address]. tel:[phone] Referring Provider: Mariya Lamb, [address] [place], [address] . tel:[phone] [facility], [address], [place], [place], [address] , [place] tel: [phone] Allison Pulmonary nodule 6 Adonis Garciah. [address] [place], [place], [address]. tel:[phone] [facility], [address], [place], [place], [address] , [place] tel: [phone] Allison Essential (primary) hypertensionParkins on's diseaseAtherosclero sis of aortaUlcerative colitis, unspecified, without complicationsDepres juan, unspecified depression type 6 Lamb Mariya. [address] [place], [place], [address]. tel:[phone] Referring Provider: [place], [address] . tel:[phone] [facility], [address], [place], [place], [address] , [place] tel: [phone] Allison Essential (primary) hypertensionAtheros clerosis of aortaParkinson's diseaseOther depressive episodesUlcerative colitis, unspecified, without complications 6 Lambjhon Garciah. [address] [place], [place], [address]. tel:[phone] Referring Provider: [place], [address] . tel:[phone] [facility], [address], [place], [place], [address] , [place] tel: [phone] Allison Abnormal CT scan, chest 6 Adonis Garciah. [address] [place], [place], [address]. tel:[phone] [facility], [address], [place], [place], [address] , [place] tel: [phone] [place] [facility] 8 6 Adonis Meraz. [address] [place], [place], [address]. tel:[phone] Referring Provider: [place], [address] . tel:[phone] [facility], [address], [place], [place], [address] , [place] tel: [phone] Allison Encounter for Medicare annual wellness examEssential (primary) hypertensionParkins on's diseaseUlcerative colitis, unspecified, without complicationsAthero sclerosis of aortaOther depressive episodesOther specified disorders of bone density and structure, unspecified siteTinea pedis of both feet 6 Adonis Garciah. [address] [place], [place], [address]. tel:[phone] Referring Provider: [place], [address] . tel:[phone] [facility], [address], [place], [place], [address] , [place] tel: [phone] Allison Thyroid nodule Jul- 0-201 5 Adonis Garciah. [address] [place], [place], [address]. tel:[phone] [facility], [address], [place], [place], [address] , [place] tel: [phone] [place] Thyroid nodule Jul-0 7-201 5 Lamb Mariya. [address] [place], [place], [address]. tel:[phone] Referring Provider: [place], [address] . tel:[phone] [facility], [address], [place], [place], [address] , [place] tel: [phone] [place] Thyroid noduleMass 3201 5 [facility] Mariya. [address] [place], [place], [address]. tel:[phone] [facility], [address], [place], [place], [address] , [place] tel: [phone] [place] Essential (primary) hypertensionParkins on's diseaseUlcerative colitis, unspecified, without complicationsAthero sclerosis of aortaOther depressive episodesCat scratchScratched by cat, initial encounterEncounter for immunization 5 [facility] Mariya. [address] [place], [place], [address]. tel:[phone] Referring Provider: Mariya Lamb, [place], [address] . tel:[phone] [facility], [address], [place], [place], [address] , [place] tel: [phone] [place] Unspecified essential hypertensionAtheros clerosis of aortaUnspecified hypothyroidismDepre ssive disorder, not elsewhere classifiedParalysis agitansOther ulcerative colitis 7 5 Lamb Mariya. [address] [place], [place], [address]. tel:[phone] Referring Provider: Mariya Lamb, [place], [address] . tel:[phone] [facility], [address], [place], [place], [address] , [place] tel: [phone] [place] Sciatica Nov-2 8-201 5 Lamb Mariya. [address] [place], [place], [address]. tel:[phone] Referring Provider: [place], [address] . tel:[phone] [facility], [address], [place], [place], [address] , tel: [phone] [place] Medicare annual wellness visit, subsequentUnspecifi ed essential hypertensionUnspeci fied hypothyroidismParal ysis agitansDepressive disorder, not elsewhere classifiedOther ulcerative colitisAtherosclero sis of aortaDisorder of bone and cartilage, unspecified 5 Adonis Garciah. [address] [place], [place], [address]. tel:[phone] Referring Provider: Mariya Lamb, [address] [place], [address] . tel:[phone] [facility], [address], [place], [place], [address] , tel: [phone] [place] Unspecified essential hypertensionUnspeci fied hypothyroidismParal ysis agitansOther ulcerative colitis 4 Lamb Mariya. [address] [place], [place], [address]. tel:[phone] Referring Provider: Mariya Lamb, [address] [place], [address] . tel:[phone] [facility] [address], [place], [place], [address] , tel: [phone] [place] HTNHypothyroidismPa rkinson's DiseaseDepressionUl cerative colitis, unspecified 4 [facility] Mariya. [address] [place], [place], [address]. tel:[phone] Referring Provider: Mariya Lamb, [address] [place], [address] . tel:[phone] [facility], [address], [place], [place], [address] , tel: [phone] [place] History of fall/At Risk For FallingScreening for unspecified conditionRoutine Medical ExamHTNHypothyroidi smAtherosclerosis, AortaDisorder of bone and cartilage, unspecifiedDepressi onParkinson's DiseaseInfluenza VaccineUlcerative colitis, unspecified 4 Lamb Mariya. [address] [place], [place], [address]. tel:[phone] Referring Provider: Mariya Lamb, [address] [place], [address] . tel:[phone] [facility], [address], [place], [place], [address] , [place] tel: [phone] Allison No Information 3 Lamb Mariya. [address] [place], [place], [address]. tel:[phone] [facility], [address], [place], [place], [address] , [place] tel: [phone] [place] Routine general medical examination at a health care facilityOsteopeniaP arkinson diseaseUlcerative colitisLong-term (current) use of other medicationsDepressi ve disorder, not elsewhere classified 2 Lambjhon Garciah. [address] [place], [place], [address]. tel:[phone] Referring Provider: Mariya Lamb, [address] [place], [address] . tel:[phone] [facility], [address], [place], [place], [address] , [place] tel: [phone] [place] No Information 2 Adonis Garciah. [address] [place], [place], [address]. tel:[phone] [facility], [address], [place], [place], [address] , [place] tel: [phone] [place] Unspecified essential hypertensionUnspeci fied acquired hypothyroidismParki nson's DiseaseUlcerative colitis, unspecifiedDepressi ve disorder, not elsewhere classifiedBONE & CARTILAGE DIS NOSGENERAL OSTEOARTHROSISUlcer ative colitis, unspecifiedAORTIC ATHEROSCLEROSIS 1 Lambjoselito Garciah. [address] [place], [place], [address]. tel:[phone] Referring Provider: Mariya Lamb, [address] [place], [address] . tel:[phone] [facility] [employer], [address], [place], [place], [address] , [place] tel: [phone] [place] No Information 1 Lamb Mariya. [address] [place], [place], [address]. tel:[phone] [facility] [employer], [address], [place], [place], [address] , [place] tel: [phone] [place] HYPOTHYROIDISM NOSPARALYSIS AGITANSDEPRESSIVE DISORDER NECMITRAL VALVE DISORDER 1 Lamb Mariya. [address] [place], [place], [address]. tel:[phone] [facility] [employer], [address], [place], [place], [address] , [place] tel: [phone] [place] DISC DEGENERATION NOS 1 [facility]. [address] [place] [address], [place], [address], [place]. [facility] [employer], [address], [place], [place], [address] , [place] tel: [phone] [place] GENERAL OSTEOARTHROSISBONE & CARTILAGE DIS NOSHYPERTENSION NOSAORTIC ATHEROSCLEROSIS 1 Lamb Mariya. [address] [place], [place], [address]. tel:[phone] [facility], [address], [place], [place], [address] , [place] tel: [phone] [place] ULCERATVE COLITIS UNSPCF 1 Ivan Bucio. [address] [place], [place], [address], [place]. tel:[phone] [facility], [address], [place], [place], [address] , [place] tel: [phone] [place] No Information 1 Lamb Mariya. [address] [place], [place], [address]. tel:[phone] [facility], [address], [place], [place], [address] , [place] tel: [phone] [place] No Information 5 Adonis Meraz. [address] [place], [place], [address]. tel:[phone] [facility], [address], [place], [place], [address] , tel: [phone] Allison ROUTINE MEDICAL EXAM 2 Adonis Meraz. [address] [place], [place], [address]. tel:[phone] Family History Family Member Type Diagnosis Age [...] yrs and older administered Note: ND C# [id number] ; Source: New Immunization Record flu (split) (3 yrs or older) administered Source: New Immunization Record Zoster administered Source: New Imm unization Record flu (split) (3 yrs or older) administered Source: New Immunization Record 08053 - Influenza administered Source: So urce Unspecified INFLUENZA A (H1N1 IMMUNICATI ON ADMIN administered Source: Source Unspe cified INFLUENZA A (H1N1) VACCINE, ANY ROUTE OF ADMIN administered Source: Source Unspe cified 02850 - Influenza administered Source: So urce Unspecified 07030 - Pneumococcal_PPV23 administered S ource: Source Unspecified Payers Payer name Insurance type Covered constitution party ID Authoriza tion(s) [place] [id number] [place] [id number] [place] [id number] [place] [id number] [place] [id number] [facility] BL [id number] [place] [id number] [facility] [id number] Social History Type Description Quantity Date Captured [...]
--- OUTSIDE RECORDS SUMMARY | 2024-10-08 22:18 | XMS_ITS | Encounter Summary ---
Author Organization [facility] Address [facility] [place] [address] Care Team Providers Care Plant Reliability Engineer Name Role Phone Yury Miranda ALMAGUER Primary Care Provider [phone] Reason for Visit * Reason Onset Date Comments Advice 10/08/2024 Encounter Details Date Type Department Care Team (Late st Contact Info) Description 10/08/[address] [facility] Family [facility] Internal Medicine [address] [address] Miranda Cotton FNP [address] [place] [address] Advice Social History Tobacco Use Types Packs/Day Years [...] on file documented as of this encounter Progress Notes * TRIPP Tsang - 10/08/2024 12:18 PM CST Can we call for further information. TENANCE TECHNICIAN 2ND SHIFT * Ana Cohen - 10/08/2024 9:35 AM CST Pts logging contractor called in stating 09/22/24 pt was prescribed abx for infection in mouth causing few teeth to be pulled. PT is not experiencing headache that is affecting head, neck and both shoulders. Ground Source Heat Pump Technician was wondering what can be done. Please advise. If no answer please leave message. taker off drying kiln leaves at 12pm will not be back before friday [phone] if needing to milk pickup truck driver medications for pt. TENANCE TECHNICIAN 2ND SHIFT documented in this encounter Plan of Treatment Upcoming Encounters Date Type Department Care Team (Late st Contact Info) Description 11/12/2024 10:45 AM CDT Office Visit [facility] [address] Kelly Pak MD [facility] [address] [place] [address] documented as of this encounter Visit Diagnoses Not on filedocumented in this encounter Additional Health Concerns Assessment Noted Time PHQ-9 Depression Total Score: 5 03/21/20 22 2:58 PM CDT documented as of this encounter Care Teams Plant Reliability Engineer Relationship Specialty Start Date End Date Miranda Cotton FNP [address] [place] [address] PCP - General Nurse Practitioner Family 08/25/18 documented as of this encounter
== END 2024-10-08 22:06 | disposition left against medical advice (07) ==
LOC: ANHED 22:16
PROVIDERS: Emergency Provider Registered Nurse; PCP Nurse Practitioner Family
DX: R51.9 Headache, unspecified (principal); M54.2 Cervicalgia; G25.0 Essential tremor; G31.84 Mild cognitive impairment of uncertain or unknown etiology
CPT/HCPCS: 36415; 70450; 80053; 83605; 84484; 85025; 85610; 85730; 86140; 93005; 99284